=== PATIENT | female | born 1990 | race Caucasian/White ===

== ENCOUNTER 2016-10-15 14:21 | Emergency (ER) | payer OTHER | END 2016-10-15 15:07 | disposition home or self-care (01) | DX: G62.9 Polyneuropathy, unspecified (principal); Z98.890 Other specified postprocedural states ==

== ENCOUNTER 2017-07-07 18:38 | Inpatient (IN) | payer OTHER ==
--- NOTE | 2017-07-07 18:52 | ED Physician Documentation ---
PD HPI URI - Stated complaint Stated Complaint: COUGH - History obtained from History obtained from: Patient - History of Present Illness Timing - onset: How many days ago (4) Timing duration: Days (4) Timing details: Gradual onset (she was feeling okay post op and doing okay at home. 4 days ago started with cough and dyspnea. No chest pain. Cough is making back hurt more. Denies edema nor legs pains. Continues to have cough and some wheezing feeling. Not smoker. No fevers per se.), Still present Associated symptoms: Dry cough, Dyspnea. No: Fever, Nasal congestion, Sore throat, Swollen nodes, Hemoptysis, Chest pain, NVD Contributing factors: Sick contact (she was in hospital for few days 10 days ago.). 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 denies: Fever, Chills, Myalgias Nose: reports: Congestion. denies: Rhinorrhea / runny nose, Sinus pressure / pain Throat: denies: Sore throat Cardiac: denies: Chest pain / pressure, Palpitations Respiratory: reports: Dyspnea, Cough, Wheezing GI: denies: Abdominal Pain, Nausea, Vomiting, Diarrhea : denies: Dysuria (but has feeling of having to push to get urine output. Then gets large amount. No hematuria.) Skin: denies: Rash, Lesions Musculoskeletal: reports: Neck pain, Back pain (upper thoracic, post operative) Neurologic: reports: Generalized weakness. 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 ) - Past Surgical History General: Appendectomy - Present Medications Home Medications: Ambulatory Orders Medication Instructions Recorded Confirmed Cyclobenzaprine [Flexeril] 10 mg PO Q6HR PRN 07/07/17 07/07/17 oxyCODONE [Roxicodone] 10 mg PO Q3HR PRN 07/07/17 07/07/17 - Allergies Allergies/Adverse Reactions: Allergies Allergy/AdvReac Type Severity Reaction Status Date / Time No Known Drug Allergies Allergy Verified 07/07/17 18:57 - Social History Does the pt smoke?: No Smoking Status: Never smoker Does the pt drink ETOH?: No Does the pt have substance abuse?: No - Family History Family history: denies: Sudden , Venous thromboembolism - Immunizations Immunizations are current?: Yes PD ED PE NORMAL - Vitals Vital signs reviewed: Yes (tachycardic, sinus tach; sats good. ) - General General: Alert and oriented X 3, No acute distress, Well developed/nourished - HEENT HEENT: Pharynx benign. No: Ears normal (both ears with some inflammation of the outer canal. TMs appear normal. ) - Neck Neck: Supple, no meningeal sign, No adenopathy - Cardiac Cardiac: RRR, No murmur - Respiratory Respiratory: No respiratory distress. No: Clear bilaterally (diffuse wheezing without accessory muscle use. No coarse sounds. ) - Abdomen Abdomen: Soft, Non tender, Non distended - Back Back: No CVA TTP - Derm Derm: Normal color, Warm and dry, Other (neck and thoracic area with sutures in place. Some redness just at sutures sites c/w irritation. Does not have infection appearance. No drainage. ) - Extremities Extremities: No tenderness to palpate, Normal ROM s pain, No edema, No calf tenderness / cord - Neuro Neuro: Alert and oriented X 3, No motor deficit, Normal speech - Psych Psych: Normal mood, Normal affect Results - Vitals Vitals: Vital Signs - 24 hr 07/07/17 07/07/17 07/07/17 18:44 19:12 19:30 Temperature 36.4 C L Heart Rate 144 H 133 H 120 H Respiratory 20 20 18 Rate Blood Pressure 118/83 H O2 Saturation 97 97 07/07/17 07/07/17 07/07/17 19:34 20:08 20:26 Temperature Heart Rate 122 H 115 H 117 H Respiratory 18 16 17 Rate Blood Pressure 122/74 107/53 L O2 Saturation 100 95 96 07/07/17 07/07/17 07/07/17 21:00 21:33 22:52 Temperature 36.5 C Heart Rate 121 H 130 H 133 H Respiratory 18 17 17 Rate Blood Pressure 111/69 114/78 O2 Saturation 96 96 07/07/17 23:45 Temperature Heart Rate 128 H Respiratory 16 Rate Blood Pressure O2 Saturation 94 Oxygen O2 Source Room air - EKG (time done) 18:59 Rate: Rate (enter#) (136) Rhythm: Sinus tachycardia Grahn: Normal Intervals: Normal VT QRS: Normal Ischemia: Normal ST segments. No: ST elevation c/w ischemia, ST depression - Labs Labs: Laboratory Tests 07/07/17 07/07/17 07/07/17 19:39 19:39 19:39 WBC 9.9 RBC 3.49 L Hgb 10.6 L Hct 32.3 L MCV 92.5 MCH 30.3 MCHC 32.7 RDW 16.2 H Plt Count 305 MPV 6.9 L Neut # 7.5 H Lymph # 1.3 L [place] # 0.9 Eos # 0.2 Baso # 0.0 Absolute Nucleated RBC 0.00 Nucleated RBC % 0.0 D-Dimer 588.3 H Sodium 132 L Potassium 3.9 Chloride 102 Carbon Dioxide 24 Anion Gap 6.0 BUN 6 Creatinine 0.7 Estimated GFR (MDRD) 103 Glucose 116 H Calcium 8.8 Total Bilirubin < 0.2 L AST 24 ALT 47 Alkaline Phosphatase 73 Total Protein 7.0 Albumin 3.3 Globulin 3.7 Albumin/Globulin Ratio 0.9 L Lipase 24 Urine Color Urine Clarity Urine pH Ur Specific Morris Urine Protein Urine Glucose (UA) Urine Ketones Urine Occult Blood Urine Nitrite Urine Bilirubin Urine Urobilinogen Ur Leukocyte Esterase Ur Microscopic Review Urine Culture Comments 07/07/17 21:15 WBC RBC Hgb Hct MCV MCH MCHC RDW Plt Count MPV Neut # Lymph # [place]well # Eos # Baso # Absolute Nucleated RBC Nucleated RBC % D-Dimer Sodium Potassium Chloride Carbon Dioxide Anion Gap BUN Creatinine Estimated GFR (MDRD) Glucose Calcium Total Bilirubin AST ALT Alkaline Phosphatase Total Protein Albumin Globulin Albumin/Globulin Ratio Lipase Urine Color YELLOW Urine Clarity CLEAR Urine pH 6.0 Ur Specific Morris <=1.005 Urine Protein NEGATIVE Urine Glucose (UA) NEGATIVE Urine Ketones NEGATIVE Urine Occult Blood NEGATIVE Urine Nitrite NEGATIVE Urine Bilirubin NEGATIVE Urine Urobilinogen 0.2 (NORMAL) Ur Leukocyte Esterase NEGATIVE Ur Microscopic Review NOT INDICATED Urine Culture Comments NOT INDICATED - Rads (name of study) chest Radiology: Prelim report reviewed, EMP read contemporaneously (post op spine changes. No lung parenchymal abnormalities. ) chest angio Radiology: Prelim report reviewed, Discussed with rads (small to moderate amount of clot segmental arteries both lungs. ) PD MEDICAL DECISION MAKING - ED course Complexity details: reviewed results (post void bladder residual shows 280 ml. CXR is okay. [address] chest showing PEs. ), re-evaluated patient (some improvement with nebulizer but still tachycardic. Sats okay now at 97%. Breathing easily. Still concern for occult pneumonia or PE due to abnormal vitals. Will get chest angio after discussion with patient. ), considered differential (concern for pneumonia, atelectasis, PTX, effusions, PE - will test for these. For bladder, concern for UTI or retention. ), d/w patient Departure - Departure Clinical Impression: Urinary retention with incomplete bladder emptying, History of recent intraspinal surgery, Tachycardia, Cough Pulmonary emboli Qualifiers: Pulmonary embolism type: other Chronicity: acute Acute cor pulmonale presence: without acute cor pulmonale Qualified Code(s): I26.99 - Other pulmonary embolism without acute cor pulmonale Condition: Stable Record reviewed to determine appropriate education?: Yes
[2017-07-07] MEDS ORDERED: SODIUM CHLORIDE 0.9% 1,000 ML IV ONE (19:22)
[2017-07-07] MEDS ORDERED: KETOROLAC 60 MG/2 ML VIAL IVP STA (19:22)
[2017-07-07] MEDS ORDERED: ALBUTEROL NEB 2.5 MG/3 ML INH STA ×2 (19:22→20:47)
[2017-07-07] MEDS ORDERED: ALBUTEROL NEB 2.5 MG/3 ML INH ONE ×2 (19:30→21:11)
[2017-07-07] MEDS ORDERED: KETOROLAC 30 MG/ML VIAL ONE (19:30)
[2017-07-07 19:46] LABS: BASOPHILS % (AUTO) 0.2 %; EOSINOPHILS # (AUTO) 0.2 10^3/uL (0.0-0.7); EOSINOPHILS % (AUTO) 1.9 %; HCT - HEMATOCRIT 32.3 % (37.0-47.0); HGB - HEMOGLOBIN 10.6 g/dL (12.0-16.0); LYMPHOCYTES # (AUTO) 1.3 10^3/uL (1.5-3.5); LYMPHOCYTES % (AUTO) 13.4 %; MEAN CORPUSCULAR HEMOGLOBIN 30.3 pg (27.0-31.0); MEAN CORPUSCULAR HGB CONC 32.7 g/dL (32.0-36.0); MEAN CORPUSCULAR VOLUME 92.5 fL (81.0-99.0); MEAN PLATELET VOLUME 6.9 fL (7.9-10.8); MONOCYTES # (AUTO) 0.9 10^3/uL (0.0-1.0); MONOCYTES % (AUTO) 8.6 %; NEUTROPHILS # (AUTO) 7.5 10^3/uL (1.5-6.6); NEUTROPHILS % (AUTO) 75.9 %; RED BLOOD COUNT 3.49 10^6/uL (4.20-5.40); RED CELL DISTRIBUTION WIDTH 16.2 % (12.0-15.0); UNCORRECTED WHITE BLOOD COUNT 9.9 x10^3/uL; WHITE BLOOD COUNT 9.9 x10^3/uL (4.8-10.8)
[2017-07-07 19:57] LABS: ALBUMIN/GLOBULIN RATIO 0.9 (1.0-2.2); BILIRUBIN,TOTAL < 0.2 mg/dL (0.2-1.0); BUN - BLOOD UREA NITROGEN 6 mg/dL (6-20); CALCIUM 8.8 mg/dL (8.5-10.3); CARBON DIOXIDE - CO2 24 mmol/L (21-32); CHLORIDE 102 mmol/L (101-111); CREATININE 0.7 mg/dL (0.4-1.0); GFR - MDRD 103 (>89); GLUCOSE 116 mg/dL (70-100); LIPASE 24 U/L (22-51); POTASSIUM 3.9 mmol/L (3.5-5.0); SODIUM 132 mmol/L (135-145)
[2017-07-07] MEDS ORDERED: HYDROmorphone 1 MG/ML SYRINGE IVP STA ×2 (20:05→22:57)
--- NOTE | 2017-07-07 20:11 | XRAY Preliminary Report ---
Exam: XR CHEST 2 VIEW PA/LAT IMPRESSION: Normal heart size and clear lungs. [facility] SITE ID: [id number]
[2017-07-07] MEDS ORDERED: HYDROmorphone 1 MG/ML SYRINGE ONE ×2 (20:12→23:03)
--- NOTE | 2017-07-07 20:14 | XRAY Report ---
EXAM: CHEST RADIOGRAPHY EXAM DATE: 07/07/2017 08:00 PM. CLINICAL HISTORY: Recent neck surgery. Cough and wheezing. COMPARISON: None. TECHNIQUE: 2 views. FINDINGS: Lungs/Pleura: No focal opacities evident. No pleural effusion. No pneumothorax. Normal volumes. Mediastinum: Heart and mediastinal contours are unremarkable. Other: Cervicothoracic fusion in place. IMPRESSION: Normal heart size and clear lungs. [facility] Referring Provider Line: [phone] SITE ID: [id number]
[2017-07-07] MEDS ORDERED: BENZONATATE 100 MG CAPSULE PO STA (21:21)
[2017-07-07 21:22] LABS: BILIRUBIN,URINE NEGATIVE (NEGATIVE)
[2017-07-07] MEDS ORDERED: DEXAMETHASONE 10 MG/ML VIAL IVP STA (21:22)
[2017-07-07] MEDS ORDERED: DOXYCYCLINE 100 MG TABLET PO STA (21:22)
[2017-07-07 21:25] LABS: UA CHARGE (STRIP ONLY) YES; UR CULTURE IF IND NOT INDICATED
[2017-07-07] MEDS ORDERED: DOXYCYCLINE 100 MG TABLET PO ONE (21:32)
[2017-07-07] MEDS ORDERED: DEXAMETHASONE 10 MG/ML VIAL ONE (21:32)
[2017-07-07] MEDS ORDERED: BENZONATATE 100 MG CAPSULE PO ONE (21:32)
[2017-07-07] MEDS ORDERED: IOPAMIDOL-300 100 ML VIAL ONE (21:34)
[2017-07-07] MEDS ORDERED: IOPAMIDOL-300 100 ML VIAL IVP ONE (22:00)
--- NOTE | 2017-07-07 22:35 | CT Preliminary Report ---
Exam: CT CHEST ANGIO (PE) IMPRESSION: Positive for pulmonary embolism with a [id number] amount of clot. [facility] The above critical findings were discussed with Dr. Chowdhury by Dr. Julio Cesar Quesada at 22:34 hrs on . SITE ID: [id number]
--- NOTE | 2017-07-07 22:38 | CT Report ---
EXAM: CT ANGIOGRAM CHEST EXAM DATE: 07/07/2017 10:05 PM. CLINICAL HISTORY: Post op with cough and dyspnea; tachycardia. COMPARISON: None. TECHNIQUE: Routine helical imaging was performed through the chest in the pulmonary arterial phase. I V Contrast: 80 cc Isovue 300. Reconstructions: Sagittal, coronal, and 3-D MIP. In accordance with CT protocol optimization, one or more of the following dose reduction techniques w ere utilized for this exam: automated exposure control, adjustment of mA and/or KV based on patient s ize, or use of iterative reconstructive technique. FINDINGS: Pulmonary Arteries: Diagnostic quality: Adequate through the segmental arteries. Multiple pulmonary emboli at the segment al and subsegmental levels, right more than left, with a small amount of thrombus visible at the righ t left pulmonary artery bifurcations. No large or central lesions. RV/LV is within normal limits. There is no interventricular septal bowing. There is no reflux of cont rast material in the IVC. Lungs/Pleura: No consolidation, nodules, or edema. No effusions or pneumothorax. Mediastinum: Normal heart size. No pericardial effusion. No lymphadenopathy. Thoracic Aorta: Unremarkable. Upper Abdomen: Unremarkable. Other: Extensive postoperative changes in the spine. IMPRESSION: Positive for pulmonary embolism with a [id number] amount of clot. [facility] The above critical findings were discussed with Dr. Chowdhury by Dr. Julio Cesar Quesada at 22:34 hrs on . Referring Provider Line: [phone] SITE ID: [id number]
[2017-07-08] MEDS ORDERED: PROMETHAZINE 25 MG/1 ML VIAL IM PRN (00:28)
[2017-07-08] MEDS ORDERED: ONDANSETRON 4 MG/2 ML VIAL IVP PRN (00:28)
[2017-07-08] MEDS ORDERED: PROCHLORPERAZINE 10 MG/2 ML VIAL IVP PRN (00:28)
[2017-07-08] MEDS ORDERED: ZOLPIDEM 5 MG TABLET PO PRN (00:28)
[2017-07-08] MEDS ORDERED: IPRATROPIUM/ALBUTEROL 3 ML NEB INH PRN (00:28)
[2017-07-08] MEDS ORDERED: oxyCODONE 5 MG TABLET PO PRN (00:28)
[2017-07-08] MEDS ORDERED: HEPARIN 25,000 UNITS/500 ML NS 25,000 UNIT/500 ML BAG IV SCH (01:00)
--- NOTE | 2017-07-08 02:06 | HISTORY & PHYSICAL EXAMINATION ---
Chief Complaint - Chief Complaint Chief Complaint: Shortness of air History of Present Illness - Admitted From Admitted From:: Emergency department - History Obtained From Records Reviewed: Yes History obtained from: Patient Exam Limitations: None - History of Present Illness HPI Comment/Other: Patient is a very unfortunate 26-year-old female with a past medical history significant for giant cell sarcoma diagnosed in 2014. Patient was initially diagnosed when she presented with persistent back pain and found to have sarcoma in the T-spine. The patient's tumor was removed and she had a fusion from C8-T2. The patient had recurrence of tumor within a year and again underwent surgery for removal of the tumor and then had 8 weeks of radiation therapy. The patient then again had recurrence of tumor this time she stated that it was pressing up against her lungs and she underwent a VATS procedure to have the tumor removed. Most recently the patient was having increasing back pain and worsening kyphosis. Patient had surgery for revision of her previous hardware with C2-T8 fusion on June 27, 2017. Patient had a 9-1/2 hour procedure and was hospitalized for 5 days postprocedure. She states that she was feeling very well after returning home. She did have some residual pain from the surgery but otherwise had no symptoms. She states that about 4 days ago she began to develop a cough. She did not think much of the cough but she states that with the coughing she did have increased pain in the area of the surgery. She states that she became concerned the last few days when she began developing worsening shortness of breath. She states that her shortness of breath progressed over the last 2 days to the point where she was having a hard time catching her breath just at rest. The patient also states that she was having tightness in her chest. The patient denies having had any fevers, chills or any sputum production. The patient denies any wheezing or any previous history of asthma. The patient denies any leg swelling, orthopnea or PND. The patient denies any nausea or vomiting. The patient denies any abdominal pain. The patient denies any diarrhea or constipation. The patient denies any headaches, blurred vision, runny nose, sore throat, nasal congestion, urinary urgency, dysuria, joint pain , joint swelling, muscle aches, changes in appetite, recent unintentional weight loss or any focal neurologic deficits. On presentation to the emergency department the patient was afebrile but very tachycardic with a heart rate of 144. The patient was in sinus tachycardia and was mildly tachypneic but was not hypoxic or in any respiratory distress. The patient was having some coughing. The patient did have some diffuse wheezing on examination but denied any history of asthma. The patient was given several breathing treatments with albuterol in the emergency department. The patient was also given Dilaudid as she was having back pain with her coughing. The patient was given Tessalon Perles for her cough and Decadron for the wheezing. The patient underwent a chest x-ray which revealed clear lungs. The patient's lab work showed no leukocytosis but did have an elevated d-dimer of 588. The patient underwent a CT angiogram of her lungs which revealed multiple pulmonary emboli at the segmental and subsegmental levels, right more than left, with a small amount of thrombus visible at the right to left pulmonary artery bifurcation. Given these findings the patient's neurosurgeon at the [facility] was contacted. We were unable to contact the surgeon that performed the patient's surgery but we were able to get in contact with Dr. Sarah who recommended that the patient be admitted for treatment with a heparin drip. He recommended that no bolus be given and that the goal PTT be between 60 and 80 and the patient be bridged to Coumadin. He said that the risk of bleeding was not as high as if the patient had undergone brain surgery but was still increased with a spinal procedure and therefore he recommended hospitalization until the patient was appropriately bridged to Coumadin. He did not feel that it was necessary to transfer the patient to the [facility] and asked that the patient be admitted here at [facility]. 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 Social History Notes: The patient is originally from [place] she moved to [facility] just over a year ago. She is and has a 4-year-old son. Her is in the [employer] and was stationed on [facility]. The patient does not smoke cigarettes, she does not drink alcohol and she does not use any illicit drugs. - Substance History Use: Uses substance without health or social issues: NONE Abuse: Recurrent use of substance despite neg consequences: NONE Dependence: Experiences withdrawal or developed tolerances: NONE - POLST Patient has POLST: No POLST Status: Full Code Meds/Allgy - Home Medications Home Medications: Ambulatory Orders Medication Instructions Recorded Confirmed Cyclobenzaprine [Flexeril] 10 mg PO Q6HR PRN 07/07/17 07/07/17 oxyCODONE [Roxicodone] 10 mg PO Q3HR PRN 07/07/17 07/07/17 - Allergies Allergies/Adverse Reactions: Allergies Allergy/AdvReac Type Severity Reaction Status Date / Time No Known Drug Allergies Allergy Verified 07/07/17 18:57 Review of Systems - Other Findings Other Findings: A comprehensive review of systems was performed the pertinent positives and negatives are stated above in the HPI and the remainder of the review of systems is negative. Exam - Vital Signs Reviewed Vital Signs: Yes Vital Signs: Vital Signs x48h Temp Pulse Pulse Resp BP BP Pulse Ox 07/08/17 01:16 36.9 C 117 H 18 126/77 98 07/08/17 00:41 37.3 C 124 H 16 108/74 93 - Physical Exam General Appearance: positive: No acute distress, Alert Eyes Bilateral: positive: Normal inspection, PERRL, EOMI, No lid inflammation, Conjunctivae nml, No scleral icterus ENT: positive: ENT inspection nml, Pharynx nml, No signs of dehydration. negative: Purulent nasal drainage, Pharyngeal erythema, Oral lesions Neck: positive: Nml inspection, Thyroid nml, No JVD, Trachea midline. negative : Thyromegaly, Lymphadenopathy (R), Lymphadenopathy (L), Stiff neck, Carotid bruit, Tracheal deviation Respiratory: positive: Chest non-tender, Wheezes (Diffuse right worse than left) , Rales (Bases) Cardiovascular: positive: No murmur, No gallop, Tachycardia Abdomen: positive: Non-tender, No organomegaly, Nml bowel sounds, No distention. negative: Guarding, Rebound, Hepatomegaly Back: positive: Nml inspection. negative: CVA tenderness (R), CVA tenderness (L ) Skin: positive: Color nml, No rash, Warm. negative: Cyanosis, Pallor Extremities: positive: Non-tender, Full ROM, Nml appearance, No pedal edema Neurologic/Psychiatric: positive: Oriented x3, CN's nml (2-12), Motor nml, Sensation nml, Mood/affect nml Conclusion/Plan - Problem List (1) Pulmonary emboli Conclusion/Plan: Patient presented to the emergency department with chief complaint of progressive shortness of air, cough and chest tightness. The patient recently had spinal surgery on June 27 and developed symptoms less than a week after the surgical procedure. The patient presented with sinus tachycardia and shortness of air. The patient's EKG did not show any ST elevations or ischemic changes, chest x-ray was negative, d-dimer was elevated and patient's CT angiogram showed bilateral segmental and subsegmental pulmonary emboli. Given the patient's recent spinal neurosurgery from [facility] was contacted and they recommended treating the patient with a heparin drip with no bolus of heparin and with a PTT goal of 60-80. They recommended that the patient be bridged to Coumadin with heparin drip during this hospitalization. They said there was no need to perform serial CT scans but felt patient needed hospitalization for the bridging to be monitored closely. This appears to be a provoked PE due to recent surgery and patient is also at high risk secondary to sarcoma Plan: Patient will be started on a heparin drip with goal PTT of 60-80 and no boluses of heparin We will monitor the patient's hemoglobin closely Patient will be started on Coumadin and will be bridged with heparin once patient's INR is greater than 2 for 2 consecutive days the patient will be able to be discharged home on Coumadin Patient will be given supplemental oxygen as needed Patient will be given incentive spirometer Patient will be given Mucinex for cough suppression Qualifiers: Pulmonary embolism type: other Chronicity: acute Acute cor pulmonale presence: without acute cor pulmonale Qualified Code(s): I26.99 - Other pulmonary embolism without acute cor pulmonale (2) Back pain Conclusion/Plan: Patient continues to have pain in her cervical to thoracic spine area. This is the area of her recent surgical procedure. The patient states that the pain is much worse because of her recent coughing. The patient has been taking Alexis, the patient has been taking oxycodone at home and this is not been sufficient in alleviating her pain. Plan: Patient will be placed on oxycodone every 4 hours as needed and morphine every 2 hours as needed for breakthrough pain Patient will also be given a cough suppressant Qualifiers: Back pain location: thoracic back pain Chronicity: acute Back pain laterality: midline Qualified Code(s): M54.6 - Pain in thoracic spine (3) Anemia Conclusion/Plan: On presentation the patient's hemoglobin is 10.6. The patient is not on any iron supplements. It is unclear at this time what the cause of the patient's anemia is. Plan: We will continue to monitor the patient's hemoglobin daily as she is being placed on a heparin drip and Coumadin. We will check iron studies, B12 and folate (4) Giant cell sarcoma Conclusion/Plan: Patient has giant cell sarcoma of the bone. Patient has had multiple spinal surgeries to remove recurrence of tumor and had a VATS procedure. Patient most recently had a procedure to repair hardware from previous procedure that was causing patient increased pain and kyphosis. Plan: Patient does not appear to have active sarcoma at this time she is being monitored for her sarcoma at the [facility] by a sarcoma specialist Patient will continue to follow up as an outpatient Stable - Lab Results Lab results reviewed: Yes Fish Bones: 07/07/17 19:39 07/07/17 19:39 Other Lab Results: Laboratory Results WBC 9.9 x10^3/uL (4.8-10.8) 07/07/17 19:39 RBC 3.49 10^6/uL (4.20-5.40) L 07/07/17 19:39 Hgb 10.6 g/dL (12.0-16.0) L 07/07/17 19:39 Hct 32.3 % (37.0-47.0) L 07/07/17 19:39 MCV 92.5 fL (81.0-99.0) 07/07/17 19:39 MCH 30.3 pg (27.0-31.0) 07/07/17 19:39 MCHC 32.7 g/dL (32.0-36.0) 07/07/17 19:39 RDW 16.2 % (12.0-15.0) H 07/07/17 19:39 Plt Count 305 10^3/uL (130-450) 07/07/17 19:39 MPV 6.9 fL (7.9-10.8) L 07/07/17 19:39 Neut # 7.5 10^3/uL (1.5-6.6) H 07/07/17 19:39 Lymph # 1.3 10^3/uL (1.5-3.5) L 07/07/17 19:39 Jewell # 0.9 10^3/uL (0.0-1.0) 07/07/17 19:39 Eos # 0.2 10^3/uL (0.0-0.7) 07/07/17 19:39 Baso # 0.0 10^3/uL (0.0-0.1) 07/07/17 19:39 Absolute Nucleated RBC 0.00 x10^3/uL 07/07/17 19:39 Nucleated RBC % 0.0 /100WBC 07/07/17 19:39 D-Dimer 588.3 ng/mL (200.0-255.0) H 07/07/17 19:39 Anti-Xa Level 0.1 U/mL (-0.7) 07/08/17 01:32 Sodium 132 mmol/L (135-145) L 07/07/17 19:39 Potassium 3.9 mmol/L (3.5-5.0) 07/07/17 19:39 Chloride 102 mmol/L (101-111) 07/07/17 19:39 Carbon Dioxide 24 mmol/L (21-32) 07/07/17 19:39 Anion Gap 6.0 (6-13) 07/07/17 19:39 BUN 6 mg/dL (6-20) 07/07/17 19:39 Creatinine 0.7 mg/dL (0.4-1.0) 07/07/17 19:39 Estimated GFR (MDRD) 103 (>89) 07/07/17 19:39 Glucose 116 mg/dL (70-100) H 07/07/17 19:39 Calcium 8.8 mg/dL (8.5-10.3) 07/07/17 19:39 Total Bilirubin < 0.2 mg/dL (0.2-1.0) L 07/07/17 19:39 AST 24 IU/L (10-42) 07/07/17 19:39 ALT 47 IU/L (10-60) 07/07/17 19:39 Alkaline Phosphatase 73 IU/L (42-121) 07/07/17 19:39 Total Protein 7.0 g/dL (6.7-8.2) 07/07/17 19:39 Albumin 3.3 g/dL (3.2-5.5) 07/07/17 19:39 Globulin 3.7 g/dL (2.1-4.2) 07/07/17 19:39 Albumin/Globulin Ratio 0.9 (1.0-2.2) L 07/07/17 19:39 Lipase 24 U/L (22-51) 07/07/17 19:39 Urine Color YELLOW 07/07/17 21:15 Urine Clarity CLEAR (CLEAR) 07/07/17 21:15 Urine pH 6.0 PH (5.0-7.5) 07/07/17 21:15 Ur Specific [place] <=1.005 (1.002-1.030) 07/07/17 21:15 Urine Protein NEGATIVE mg/dL (NEGATIVE) 07/07/17 21:15 Urine Glucose (UA) NEGATIVE mg/dL (NEGATIVE) 07/07/17 21:15 Urine Ketones NEGATIVE mg/dL (NEGATIVE) 07/07/17 21:15 Urine Occult Blood NEGATIVE (NEGATIVE) 07/07/17 21:15 Urine Nitrite NEGATIVE (NEGATIVE) 07/07/17 21:15 Urine Bilirubin NEGATIVE (NEGATIVE) 07/07/17 21:15 Urine Urobilinogen 0.2 (NORMAL) E.U./dL (NORMAL) 07/07/17 21:15 Ur Leukocyte Esterase NEGATIVE (NEGATIVE) 07/07/17 21:15 Ur Microscopic Review NOT INDICATED 07/07/17 21:15 Urine Culture Comments NOT INDICATED 07/07/17 21:15 - Diagnostic Imaging Results Diagnostic Imaging Results: positive: Final report reviewed Diagnostic Imaging Results Comments: CT angiogram chest Impression: Multiple pulmonary emboli at the segmental and subsegmental levels, right more than left, with a small amount of thrombus visible at the right left pulmonary artery bifurcation. No large or central lesions. RV/LV is within normal limits. There is no intraventricular septal bowing. There is no reflux of contrast material in the IVC. No consolidations, nodules or edema. No effusions or pneumothorax in the lungs. Chest x-ray Impression: Normal single view chest - EKG Results EKG Interpreted Independently: Yes EKG Findings: Sinus tachycardia with no ST elevations or ischemic changes Issues/Core Measures - Anticipated LOS Anticipated Stay Length: 2 or more midnights - DVT/VTE - Prophylaxis VTE/DVT Prophylaxis med ordered at admit?: Yes
[2017-07-08] MEDS: oxyCODONE 5 MG TABLET PO PRN ×5 (02:14→21:59)
[2017-07-08] MEDS: SODIUM CHLORIDE FLUSH 0.9% 10 ML SYRINGE IVP PRN ×7 (02:15→23:43)
[2017-07-08] MEDS: MORPHINE 2 MG/ML SYRINGE IVP PRN ×6 (02:18→23:42)
[2017-07-08] MEDS: HEPARIN 25,000 UNITS/500 ML NS 25,000 UNIT/500 ML BAG IV SCH (02:23)
[2017-07-08] MEDS: SODIUM CHLORIDE FLUSH 0.9% 10 ML SYRINGE IVP SCH ×3 (05:08→21:59)
[2017-07-08 05:36] LABS: BASOPHILS % (AUTO) 0.1 %; HGB - HEMOGLOBIN 9.7 g/dL (12.0-16.0); LYMPHOCYTES % (AUTO) 3.8 %; MEAN CORPUSCULAR HEMOGLOBIN 30.9 pg (27.0-31.0); MEAN CORPUSCULAR HGB CONC 33.4 g/dL (32.0-36.0); MEAN CORPUSCULAR VOLUME 92.5 fL (81.0-99.0); NEUTROPHILS % (AUTO) 95.1 %; RED BLOOD COUNT 3.13 10^6/uL (4.20-5.40); RED CELL DISTRIBUTION WIDTH 16.2 % (12.0-15.0); UNCORRECTED WHITE BLOOD COUNT 9.6 x10^3/uL; WHITE BLOOD COUNT 9.6 x10^3/uL (4.8-10.8)
[2017-07-08 05:39] LABS: INR 1.1 (0.8-1.2); PT - PROTHROMBIN TIME 12.2 secs (9.9-12.6)
[2017-07-08 05:46] LABS: ALBUMIN/GLOBULIN RATIO 0.9 (1.0-2.2); BILIRUBIN,TOTAL 0.3 mg/dL (0.2-1.0); CALCIUM 8.6 mg/dL (8.5-10.3); CREATININE 0.6 mg/dL (0.4-1.0); POTASSIUM 4.4 mmol/L (3.5-5.0); TOTAL PROTEIN 6.7 g/dL (6.7-8.2)
[2017-07-08 06:31] LABS: BAND NEUTROPHILS % (MANUAL) 6 %; LYMPHOCYTES % (MANUAL) 5 %; NEUTROPHILS % (MANUAL) 89 %; NP AUTO DIFFERENTIAL? YES; NP MAN DIFFERENTIAL? NO; PLATELET ESTIMATE, MANUAL NORMAL (130-450,000) (NORMAL); TOTAL CELLS COUNTED 100
[2017-07-08] MEDS: guaiFENesin 600 MG TABLET PO SCH ×3 (06:37→20:55)
[2017-07-08] MEDS: WARFARIN 5 MG TABLET PO SCH ×2 (09:07→11:35)
[2017-07-08] MEDS: POLYETHYLENE GLYCOL 3350 17 GM PACKET PO SCH (09:09)
[2017-07-08] MEDS: FAMOTIDINE 20 MG TABLET PO SCH (10:06)
[2017-07-08] MEDS: PANTOPRAZOLE 40 MG TABLET PO SCH (10:10)
[2017-07-08] MEDS: CALCIUM CARBONATE CHEW 500 MG TABLET PO PRN (11:54)
[2017-07-08] MEDS: LEVALBUTEROL 1.25 MG/0.5 ML NEB INH PRN ×3 (13:17→21:17)
[2017-07-08] MEDS: SODIUM CHLORIDE INHALATION 3 ML NEB INH PRN ×3 (13:17→21:17)
[2017-07-08] MEDS: CYCLOBENZAPRINE 10 MG TABLET PO PRN (17:35)
[2017-07-09] MEDS: MORPHINE 2 MG/ML SYRINGE IVP PRN ×5 (01:21→23:55)
[2017-07-09] MEDS: oxyCODONE 5 MG TABLET PO PRN ×5 (01:22→21:35)
[2017-07-09] MEDS: SODIUM CHLORIDE FLUSH 0.9% 10 ML SYRINGE IVP PRN (01:25)
[2017-07-09] MEDS: CALCIUM CARBONATE CHEW 500 MG TABLET PO PRN (04:12)
[2017-07-09] MEDS: CYCLOBENZAPRINE 10 MG TABLET PO PRN ×2 (04:12→21:35)
[2017-07-09 04:44] LABS: BASOPHILS % (AUTO) 0.3 %; EOSINOPHILS # (AUTO) 0.1 10^3/uL (0.0-0.7); EOSINOPHILS % (AUTO) 0.4 %; HCT - HEMATOCRIT 26.8 % (37.0-47.0); LYMPHOCYTES # (AUTO) 1.6 10^3/uL (1.5-3.5); LYMPHOCYTES % (AUTO) 11.9 %; MEAN CORPUSCULAR HEMOGLOBIN 30.4 pg (27.0-31.0); MEAN CORPUSCULAR HGB CONC 33.5 g/dL (32.0-36.0); MEAN CORPUSCULAR VOLUME 90.5 fL (81.0-99.0); MEAN PLATELET VOLUME 7.1 fL (7.9-10.8); MONOCYTES # (AUTO) 0.9 10^3/uL (0.0-1.0); MONOCYTES % (AUTO) 6.9 %; NEUTROPHILS % (AUTO) 80.5 %; RED BLOOD COUNT 2.96 10^6/uL (4.20-5.40); RED CELL DISTRIBUTION WIDTH 16.4 % (12.0-15.0); UNCORRECTED WHITE BLOOD COUNT 13.7 x10^3/uL; WHITE BLOOD COUNT 13.7 x10^3/uL (4.8-10.8)
[2017-07-09 04:57] LABS: ALBUMIN/GLOBULIN RATIO 0.8 (1.0-2.2); BILIRUBIN,TOTAL 0.2 mg/dL (0.2-1.0); CALCIUM 8.7 mg/dL (8.5-10.3); CREATININE 0.6 mg/dL (0.4-1.0); POTASSIUM 4.3 mmol/L (3.5-5.0); TOTAL PROTEIN 6.8 g/dL (6.7-8.2)
[2017-07-09] MEDS: SODIUM CHLORIDE FLUSH 0.9% 10 ML SYRINGE IVP SCH ×3 (04:57→20:13)
[2017-07-09 05:08] LABS: PT - PROTHROMBIN TIME 11.4 secs (9.9-12.6)
[2017-07-09 05:23] LABS: IRON 16 ug/dL (28-170); TOTAL IRON BINDING CAPACITY 326 ug/dL (250-450); TRANSFERRIN 233 mg/dL (192-382)
[2017-07-09 05:26] LABS: FOLATE 8.69 ng/mL (5.90 - >24.8)
[2017-07-09] MEDS: PANTOPRAZOLE 40 MG TABLET PO SCH (06:20)
[2017-07-09] MEDS: HEPARIN 25,000 UNITS/500 ML NS 25,000 UNIT/500 ML BAG IV SCH (07:46)
[2017-07-09] MEDS: guaiFENesin 600 MG TABLET PO SCH ×2 (09:07→20:21)
[2017-07-09] MEDS: FAMOTIDINE 20 MG TABLET PO SCH (09:07)
[2017-07-09] MEDS: POLYETHYLENE GLYCOL 3350 17 GM PACKET PO SCH (09:08)
--- NOTE | 2017-07-09 11:30 | PROVIDER PROGRESS NOTE ---
Subjective - Prog Note Date Prog Note Date: 07/09/17 Prog Note Time: 11:28 - Subjective Pt reports feeling: No change Current Medications - Current Medications Current Medications: Active Medications Acetaminophen (Tylenol) 650 mg PO Q4HR PRN PRN Reason: Pain 1 to 4 Albuterol/Ipratropium (Duoneb) 3 ml INH Q4HR PRN PRN Reason: Wheezing Calcium Carbonate/Glycine (Tums) 500 mg PO QID PRN PRN Reason: INDIGESTION Last Admin: 07/09/17 04:12 Dose: 500 mg Cyclobenzaprine HCl (Flexeril) 10 mg PO Q6HR PRN PRN Reason: Spasms Last Admin: 07/09/17 04:12 Dose: 10 mg Famotidine (Pepcid) 20 mg PO DAILY [facility] Last Admin: 07/09/17 09:07 Dose: 20 mg Guaifenesin (Mucinex) 600 mg PO BID [facility] Last Admin: 07/09/17 09:07 Dose: 600 mg Heparin Sodium/Sodium Chloride (Heparin/0.45% Nacl) 25,000 unit in 500 mls @ 14.88 mls/hr IV .[id number] TOI; 12 UNIT/KG/HR PRN Reason: Protocol Last Titration: 07/09/17 11:19 Dose: 0 unit/kg/hr, 0 mls/hr Levalbuterol HCl (Xopenex) 1.25 mg INH Q2H PRN PRN Reason: Wheezing Last Admin: 07/08/17 21:17 Dose: 1.25 mg Morphine Sulfate (Morphine) 2 mg IVP Q2H PRN PRN Reason: Pain 8 to 10 Last Admin: 07/09/17 09:50 Dose: 2 mg Ondansetron HCl (Zofran Inj) 4 mg IVP Q6HR PRN PRN Reason: Nausea / Vomiting Oxycodone HCl (Roxicodone) 5 mg PO Q4HR PRN PRN Reason: Pain 5 to 7 Oxycodone HCl (Roxicodone) 10 mg PO Q4HR PRN PRN Reason: Pain 8 to 10 Last Admin: 07/09/17 09:08 Dose: 10 mg Pantoprazole Sodium (Protonix) 40 mg PO QDAC [facility] Last Admin: 07/09/17 06:20 Dose: 40 mg Polyethylene Glycol (Miralax) 17 gm PO DAILY [facility] Last Admin: 07/09/17 09:08 Dose: 17 gm Prochlorperazine Edisylate (Compazine Inj) 10 mg IVP Q6HR PRN PRN Reason: Nausea / Vomiting Promethazine HCl (Phenergan Inj) 25 mg IM Q6HR PRN PRN Reason: Nausea / Vomiting Sodium Chloride (Normal Saline Flush 0.9%) 10 ml IVP PRN PRN PRN Reason: NEEDED PER PROVIDER ORDERS Last Admin: 07/09/17 01:25 Dose: 10 ml Sodium Chloride (Normal Saline Flush 0.9%) 10 ml IVP Q8HR [facility] Last Admin: 07/09/17 04:57 Dose: 10 ml Sodium Chloride (Normal Saline) 3 ml INH PRN PRN PRN Reason: Levalbuterol treatment Last Admin: 07/08/17 21:17 Dose: 3 ml Warfarin Sodium (Coumadin) 5 mg PO QDWARFARIN [facility] Last Admin: 07/08/17 11:35 Dose: Not Given Zolpidem Tartrate (Ambien) 5 mg PO QPM PRN PRN Reason: Insomnia Cyclobenzaprine [Flexeril] 10 mg PO Q6HR PRN 07/07/17 oxyCODONE [Roxicodone] 10 mg PO Q3HR PRN 07/07/17 Metoclopramide [Reglan] 10 mg PO Q8H PRN 07/08/17 Ondansetron HCl [Zofran] 4 mg PO Q6H PRN 07/08/17 Objective - Vital Signs/Intake & Output Reviewed Vital Signs: Yes Vital Signs: Vital Signs x48h Temp Pulse Resp BP Pulse Ox 07/09/17 07:44 37.1 C 98 16 113/71 95 07/09/17 04:13 36.9 C 119 H 18 118/74 96 Intake & Output: Intake & Output 07/06/17 07/07/17 07/08/17 07/09/17 23:59 23:59 23:59 23:59 Intake Total 1209.08 1024.543 Output Total 1200 800 Balance 9.08 224.543 - Objective General Appearance: positive: No acute distress, Alert, Other (She is laying comfortably in her bed. and mom at the bedside. Well-nourished well- developed young white female in no acute distress) Eyes Bilateral: positive: PERRL, EOMI ENT: positive: Pharynx nml Neck: positive: No JVD. negative: Stiff neck, Carotid bruit Respiratory: positive: Chest non-tender, Other (Lung sounds diffusely diminished on the right side as opposed to the left side). negative: Wheezes, Rales, Rhonchi Cardiovascular: positive: Regular rate & rhythm, Other (No RV lift). negative: Systolic murmur, Gallop/S4, Friction rub Abdomen: positive: Non-tender, No organomegaly, Nml bowel sounds, No distention Skin: positive: Other (Incision over her lower C-spine and upper T-spine. Closed, sutures in place. Minimal pinkness or redness at the suture lines. But there is no induration, no heat, no drainage) Extremities: positive: Non-tender, No pedal edema. negative: Calf tenderness, Pacheco's sign/cords Neurologic/Psychiatric: positive: Oriented x3, CN's nml (2-12), Motor nml - Lab Results Fish Bones: 07/09/17 04:30 07/09/17 04:30 Other Labs: Lab Results x24hrs 07/09/17 07/09/17 07/09/17 Range/Units 11:00 04:30 04:30 WBC (4.8-10.8) x10^3/uL RBC (4.20-5.40) 10^6/uL Hgb (12.0-16.0) g/dL Hct (37.0-47.0) % MCV (81.0-99.0) fL MCH (27.0-31.0) pg MCHC (32.0-36.0) g/dL RDW (12.0-15.0) % Plt Count (130-450) 10^3/uL MPV (7.9-10.8) fL Neut # (1.5-6.6) 10^3/uL Lymph # (1.5-3.5) 10^3/uL [place] # (0.0-1.0) 10^3/uL Eos # (0.0-0.7) 10^3/uL Baso # (0.0-0.1) 10^3/uL Absolute Nucleated RBC x10^3/uL Nucleated RBC % /100WBC PT (9.9-12.6) secs INR (0.8-1.2) Anti-Xa Level 1.6 H* 0.2 ( - 0.7) U/mL Sodium (135-145) mmol/L Potassium (3.5-5.0) mmol/L Chloride (101-111) mmol/L Carbon Dioxide (21-32) mmol/L Anion Gap (6-13) BUN (6-20) mg/dL Creatinine (0.4-1.0) mg/dL Estimated GFR (MDRD) (>89) Glucose (70-100) mg/dL Calcium (8.5-10.3) mg/dL Iron (28-170) ug/dL TIBC (250-450) ug/dL % Saturation (20-50) % Transferrin (192-382) mg/dL Total Bilirubin (0.2-1.0) mg/dL AST (10-42) IU/L ALT (10-60) IU/L Alkaline Phosphatase (42-121) IU/L Total Protein (6.7-8.2) g/dL Albumin (3.2-5.5) g/dL Globulin (2.1-4.2) g/dL Albumin/Globulin Ratio (1.0-2.2) Vitamin B12 352 (180-914) pg/mL Folate 8.69 (5.90 - >24.8) ng/mL 07/09/17 07/09/17 07/09/17 Range/Units 04:30 04:30 04:30 WBC (4.8-10.8) x10^3/uL RBC (4.20-5.40) 10^6/uL Hgb (12.0-16.0) g/dL Hct (37.0-47.0) % MCV (81.0-99.0) fL MCH (27.0-31.0) pg MCHC (32.0-36.0) g/dL RDW (12.0-15.0) % Plt Count (130-450) 10^3/uL MPV (7.9-10.8) fL Neut # (1.5-6.6) 10^3/uL Lymph # (1.5-3.5) 10^3/uL [place] # (0.0-1.0) 10^3/uL Eos # (0.0-0.7) 10^3/uL Baso # (0.0-0.1) 10^3/uL Absolute Nucleated RBC x10^3/uL Nucleated RBC % /100WBC PT 11.4 (9.9-12.6) secs INR 1.0 (0.8-1.2) Anti-Xa Level ( - 0.7) U/mL Sodium 136 (135-145) mmol/L Potassium 4.3 (3.5-5.0) mmol/L Chloride 108 (101-111) mmol/L Carbon Dioxide 22 (21-32) mmol/L Anion Gap 6.0 (6-13) BUN 9 (6-20) mg/dL Creatinine 0.6 (0.4-1.0) mg/dL Estimated GFR (MDRD) 123 (>89) Glucose 112 H (70-100) mg/dL Calcium 8.7 (8.5-10.3) mg/dL Iron 16 L (28-170) ug/dL TIBC 326 (250-450) ug/dL % Saturation 5 L (20-50) % Transferrin 233 (192-382) mg/dL Total Bilirubin 0.2 (0.2-1.0) mg/dL AST 16 (10-42) IU/L ALT 33 (10-60) IU/L Alkaline Phosphatase 65 (42-121) IU/L Total Protein 6.8 (6.7-8.2) g/dL Albumin 3.0 L (3.2-5.5) g/dL Globulin 3.8 (2.1-4.2) g/dL Albumin/Globulin Ratio 0.8 L (1.0-2.2) Vitamin B12 (180-914) pg/mL Folate (5.90 - >24.8) ng/mL 07/09/17 07/08/17 07/08/17 Range/Units 04:30 21:55 16:04 WBC 13.7 H (4.8-10.8) x10^3/uL RBC 2.96 L (4.20-5.40) 10^6/uL Hgb 9.0 L (12.0-16.0) g/dL Hct 26.8 L (37.0-47.0) % MCV 90.5 (81.0-99.0) fL MCH 30.4 (27.0-31.0) pg MCHC 33.5 (32.0-36.0) g/dL RDW 16.4 H (12.0-15.0) % Plt Count 341 (130-450) 10^3/uL MPV 7.1 L (7.9-10.8) fL Neut # 11.0 H (1.5-6.6) 10^3/uL Lymph # 1.6 (1.5-3.5) 10^3/uL [place] # 0.9 (0.0-1.0) 10^3/uL Eos # 0.1 (0.0-0.7) 10^3/uL Baso # 0.0 (0.0-0.1) 10^3/uL Absolute Nucleated RBC 0.00 x10^3/uL Nucleated RBC % 0.0 /100WBC PT (9.9-12.6) secs INR (0.8-1.2) Anti-Xa Level 0.3 0.3 ( - 0.7) U/mL Sodium (135-145) mmol/L Potassium (3.5-5.0) mmol/L Chloride (101-111) mmol/L Carbon Dioxide (21-32) mmol/L Anion Gap (6-13) BUN (6-20) mg/dL Creatinine (0.4-1.0) mg/dL Estimated GFR (MDRD) (>89) Glucose (70-100) mg/dL Calcium (8.5-10.3) mg/dL Iron (28-170) ug/dL TIBC (250-450) ug/dL % Saturation (20-50) % Transferrin (192-382) mg/dL Total Bilirubin (0.2-1.0) mg/dL AST (10-42) IU/L ALT (10-60) IU/L Alkaline Phosphatase (42-121) IU/L Total Protein (6.7-8.2) g/dL Albumin (3.2-5.5) g/dL Globulin (2.1-4.2) g/dL Albumin/Globulin Ratio (1.0-2.2) Vitamin B12 (180-914) pg/mL Folate (5.90 - >24.8) ng/mL Assessment/Plan - Problem List (1) Pulmonary emboli Impression: Patient presented to the emergency department with chief complaint of progressive shortness of air, cough and chest tightness. The patient recently had spinal surgery on June 27 and developed symptoms less than a week after the surgical procedure. The patient presented with sinus tachycardia and shortness of air. The patient's EKG did not show any ST elevations or ischemic changes, chest x-ray was negative, d-dimer was elevated and patient's CT angiogram showed bilateral segmental and subsegmental pulmonary emboli. Given the patient's recent spinal neurosurgery from [facility] was contacted and they recommended treating the patient with a heparin drip with no bolus of heparin and with a PTT goal of 60-80. They recommended that the patient be bridged to Coumadin with heparin drip during this hospitalization. They said there was no need to perform serial CT scans but felt patient needed hospitalization for the bridging to be monitored closely. This appears to be a provoked PE due to recent surgery and patient is also at high risk secondary to sarcoma She has plans for flight travel to [place] in the next few weeks and asks if that is safe. Plan: Started on a heparin drip with goal PTT of 60-80 and no boluses of heparin, Day # 2 We will monitor the patient's hemoglobin closely. No epistaxis or hematuria noted. Patient will be started on Coumadin and will be bridged with heparin once patient's INR is greater than 2 for 2 consecutive days the patient will be able to be discharged home on Coumadin. today's INR 1.6 Patient will be given supplemental oxygen as needed Patient will be given incentive spirometer Patient will be given Mucinex for cough suppression I am not recommending she fly in the next few weeks and run it past neurosurgery or PCP. Qualifiers: Pulmonary embolism type: other Chronicity: acute Acute cor pulmonale presence: without acute cor pulmonale Qualified Code(s): I26.99 - Other pulmonary embolism without acute cor pulmonale (2) Back pain Conclusion/Plan: Patient continues to have pain in her cervical to thoracic spine area. This is the area of her recent surgical procedure. The patient states that the pain is much worse because of her recent coughing. The patient has been taking oxycodone at home and this is not been sufficient in alleviating her pain. Here she is on oxycodone 10 mg po and prn MS IV with adequate pain control Plan: Patient will continue on oxycodone 10 mg every 4 hours as needed and morphine every 2 hours as needed for breakthrough pain Patient will also be given a cough suppressant Qualifiers: Back pain location: thoracic back pain Chronicity: acute Back pain laterality: midline Qualified Code(s): M54.6 - Pain in thoracic spine (3) Anemia Conclusion/Plan: On presentation the patient's hemoglobin is 10.6. and 9 grams today. The patient is not on any iron supplements. After iron studies, B12 levels and folate levels, she has iron deficiency anemia Plan: We will continue to monitor the patient's hemoglobin daily as she is being placed on a heparin drip and Coumadin. On ROS no complaints of blood loss anywhere (4) Giant cell sarcoma Conclusion/Plan: Patient has giant cell sarcoma of the bone. Patient has had multiple spinal surgeries to remove recurrence of tumor and had a VATS procedure. Patient most recently had a procedure to repair hardware from previous procedure that was causing patient increased pain and kyphosis. Plan: Patient does not appear to have active sarcoma at this time she is being monitored for her sarcoma at the [facility] by a sarcoma specialist Patient will continue to follow up as an outpatient. She is due for postop suture removal and postop visit 07/12. Hopefully she'll be out by then Stable Qualifiers: Pulmonary embolism type: other Chronicity: acute Acute cor pulmonale presence: without acute cor pulmonale Qualified Code(s): I26.99 - Other pulmonary embolism without acute cor pulmonale
[2017-07-09] MEDS ORDERED: WARFARIN 5 MG TABLET PO SCH ×2 (11:37→14:00)
[2017-07-09] MEDS: LEVALBUTEROL 1.25 MG/0.5 ML NEB INH PRN (19:47)
[2017-07-09] MEDS: SODIUM CHLORIDE INHALATION 3 ML NEB INH PRN (19:47)
[2017-07-10] MEDS: oxyCODONE 5 MG TABLET PO PRN ×5 (01:17→22:10)
[2017-07-10] MEDS: CYCLOBENZAPRINE 10 MG TABLET PO PRN ×2 (03:26→16:17)
[2017-07-10] MEDS: MORPHINE 2 MG/ML SYRINGE IVP PRN ×2 (04:16→07:18)
[2017-07-10] MEDS: PANTOPRAZOLE 40 MG TABLET PO SCH (06:39)
[2017-07-10] MEDS: SODIUM CHLORIDE FLUSH 0.9% 10 ML SYRINGE IVP SCH ×3 (06:40→20:03)
[2017-07-10 06:59] LABS: BASOPHILS % (AUTO) 0.4 %; EOSINOPHILS # (AUTO) 0.1 10^3/uL (0.0-0.7); EOSINOPHILS % (AUTO) 1.6 %; HCT - HEMATOCRIT 27.5 % (37.0-47.0); LYMPHOCYTES # (AUTO) 2.1 10^3/uL (1.5-3.5); LYMPHOCYTES % (AUTO) 22.2 %; MEAN CORPUSCULAR HEMOGLOBIN 30.1 pg (27.0-31.0); MEAN CORPUSCULAR HGB CONC 32.8 g/dL (32.0-36.0); MEAN CORPUSCULAR VOLUME 91.9 fL (81.0-99.0); MEAN PLATELET VOLUME 6.8 fL (7.9-10.8); MONOCYTES # (AUTO) 0.8 10^3/uL (0.0-1.0); MONOCYTES % (AUTO) 8.2 %; NEUTROPHILS # (AUTO) 6.3 10^3/uL (1.5-6.6); NEUTROPHILS % (AUTO) 67.6 %; RED BLOOD COUNT 2.99 10^6/uL (4.20-5.40); RED CELL DISTRIBUTION WIDTH 15.8 % (12.0-15.0); UNCORRECTED WHITE BLOOD COUNT 9.3 x10^3/uL; WHITE BLOOD COUNT 9.3 x10^3/uL (4.8-10.8)
[2017-07-10 07:05] LABS: INR 1.2 (0.8-1.2); PT - PROTHROMBIN TIME 13.3 secs (9.9-12.6)
[2017-07-10] MEDS: FAMOTIDINE 20 MG TABLET PO SCH (07:35)
[2017-07-10] MEDS: CALCIUM CARBONATE CHEW 500 MG TABLET PO PRN (07:35)
[2017-07-10] MEDS: guaiFENesin 600 MG TABLET PO SCH ×2 (07:35→20:09)
[2017-07-10] MEDS: POLYETHYLENE GLYCOL 3350 17 GM PACKET PO SCH (07:51)
[2017-07-10] MEDS ORDERED: HYDROmorphone 2 MG TABLET PO PRN (09:00)
[2017-07-10] MEDS ORDERED: HYDROmorphone 0.5 MG/0.5 ML SYRINGE IVP PRN (09:01)
--- NOTE | 2017-07-10 09:04 | PROVIDER PROGRESS NOTE ---
Subjective - Prog Note Date Prog Note Date: 07/10/17 Prog Note Time: 09:02 - Subjective Pt reports feeling: No change Subjective: She feels like the suture area in her back is swollen and edematous. She describes it as how her gums and lips feel after she has been to the dentist. She is worried that the sutures to get overgrown. That it will be impossible to take them out because the skin will of grown over the sutures. She is due to get them out on Tuesday. Today is Tuesday She denies chest pain shortness of breath. Appetite is good and she has been eating. She is getting up to go to the bathroom and ambulating on her own. Pain is not as controlled as she would like now. Oxycodone just does not cut it. She said at home it was starting not to work. When I ask if there is any medicine that seemed to work better than any of the ones she is received in the past she mentions that Dilaudid from the emergency room worked better. Current Medications - Current Medications Current Medications: Active Medications Acetaminophen (Tylenol) 650 mg PO Q4HR PRN PRN Reason: Pain 1 to 4 Albuterol/Ipratropium (Duoneb) 3 ml INH Q4HR PRN PRN Reason: Wheezing Calcium Carbonate/Glycine (Tums) 500 mg PO QID PRN PRN Reason: INDIGESTION Last Admin: 07/10/17 07:35 Dose: 500 mg Cyclobenzaprine HCl (Flexeril) 10 mg PO Q6HR PRN PRN Reason: Spasms Last Admin: 07/10/17 03:26 Dose: 10 mg Famotidine (Pepcid) 20 mg PO DAILY [facility] Last Admin: 07/10/17 07:35 Dose: 20 mg Guaifenesin (Mucinex) 600 mg PO BID [facility] Last Admin: 07/10/17 07:35 Dose: 600 mg Hydromorphone HCl (Dilaudid) 2 mg PO Q6HR PRN PRN Reason: Severe Pain Hydromorphone HCl (Dilaudid Inj Syringe) 0.5 mg IVP Q2H PRN PRN Reason: PAIN Heparin Sodium/Sodium Chloride (Heparin/0.45% Nacl) 25,000 unit in 500 mls @ 14.88 mls/hr IV .[id number] [facility]; 12 UNIT/KG/HR PRN Reason: Protocol Last Titration: 07/10/17 07:18 Dose: 17 unit/kg/hr, 21.08 mls/hr Levalbuterol HCl (Xopenex) 1.25 mg INH Q2H PRN PRN Reason: Wheezing Last Admin: 07/09/17 19:47 Dose: 1.25 mg Ondansetron HCl (Zofran Inj) 4 mg IVP Q6HR PRN PRN Reason: Nausea / Vomiting Pantoprazole Sodium (Protonix) 40 mg PO QDAC [facility] Last Admin: 07/10/17 06:39 Dose: 40 mg Polyethylene Glycol (Miralax) 17 gm PO DAILY [facility] Last Admin: 07/10/17 07:51 Dose: 17 gm Prochlorperazine Edisylate (Compazine Inj) 10 mg IVP Q6HR PRN PRN Reason: Nausea / Vomiting Promethazine HCl (Phenergan Inj) 25 mg IM Q6HR PRN PRN Reason: Nausea / Vomiting Sodium Chloride (Normal Saline Flush 0.9%) 10 ml IVP PRN PRN PRN Reason: NEEDED PER PROVIDER ORDERS Last Admin: 07/09/17 01:25 Dose: 10 ml Sodium Chloride (Normal Saline Flush 0.9%) 10 ml IVP Q8HR [facility] Last Admin: 07/10/17 06:40 Dose: Not Given Sodium Chloride (Normal Saline) 3 ml INH PRN PRN PRN Reason: Levalbuterol treatment Last Admin: 07/09/17 19:47 Dose: 3 ml Warfarin Sodium (Coumadin) 7.5 mg PO QDWARFARIN [facility] Zolpidem Tartrate (Ambien) 5 mg PO QPM PRN PRN Reason: Insomnia Cyclobenzaprine [Flexeril] 10 mg PO Q6HR PRN 07/07/17 oxyCODONE [Roxicodone] 10 mg PO Q3HR PRN 07/07/17 Metoclopramide [Reglan] 10 mg PO Q8H PRN 07/08/17 Ondansetron HCl [Zofran] 4 mg PO Q6H PRN 07/08/17 Objective - Vital Signs/Intake & Output Reviewed Vital Signs: Yes Vital Signs: Vital Signs x48h Temp Pulse Resp BP Pulse Ox 07/10/17 07:36 37.0 C 111 H 18 103/66 100 07/10/17 04:19 36.9 C 97 16 100/59 L 100 Intake & Output: Intake & Output 07/07/17 07/08/17 07/09/17 07/10/17 23:59 23:59 23:59 23:59 Intake Total 1209.08 1789.923 539.19 Output Total 1200 1950 450 Balance 9.08 -160.077 89.19 - Objective General Appearance: positive: Alert, Other (Well-nourished well-developed young white female with her and mom in the room) Eyes Bilateral: positive: PERRL, EOMI ENT: positive: Pharynx nml Neck: positive: No JVD, Stiff neck (She says it is stiff, but on exam she is able to flex and extend. Flexion causes pulling along her spine in all the sutures and it hurts). negative: Carotid bruit Respiratory: positive: Chest non-tender, No respiratory distress, Other (Right lung continues to be much quieter than left lung with air sounds). negative: Wheezes, Rales, Rhonchi Cardiovascular: positive: Regular rate & rhythm, Tachycardia (She was in the 120s yesterday and today she is 110). negative: Gallop/S4, Friction rub Abdomen: positive: Non-tender, No organomegaly, Nml bowel sounds, No distention Skin: positive: Warm, Dry, Other (In looking at the suture line that goes from lower C-spine to mid thoracic spine, the incision is closed, tinge of pinkness at the mid suture line, sutures are not embedded. There is no redness, induration, heat, or drainage) Extremities: positive: Full ROM, Pedal edema Neurologic/Psychiatric: positive: Oriented x3, CN's nml (2-12), Motor nml - Lab Results Fish Bones: 07/10/17 06:46 07/09/17 04:30 Other Labs: Lab Results x24hrs 07/10/17 07/10/17 07/10/17 Range/Units 06:46 06:46 06:46 WBC 9.3 (4.8-10.8) x10^3/uL RBC 2.99 L (4.20-5.40) 10^6/uL Hgb 9.0 L (12.0-16.0) g/dL Hct 27.5 L (37.0-47.0) % MCV 91.9 (81.0-99.0) fL MCH 30.1 (27.0-31.0) pg MCHC 32.8 (32.0-36.0) g/dL RDW 15.8 H (12.0-15.0) % Plt Count 360 (130-450) 10^3/uL MPV 6.8 L (7.9-10.8) fL Neut # 6.3 (1.5-6.6) 10^3/uL Lymph # 2.1 (1.5-3.5) 10^3/uL [place] # 0.8 (0.0-1.0) 10^3/uL Eos # 0.1 (0.0-0.7) 10^3/uL Baso # 0.0 (0.0-0.1) 10^3/uL Absolute Nucleated RBC 0.00 x10^3/uL Nucleated RBC % 0.0 /100WBC PT 13.3 H (9.9-12.6) secs INR 1.2 (0.8-1.2) Anti-Xa Level 0.2 ( - 0.7) U/mL 07/09/17 07/09/17 07/09/17 Range/Units 23:12 17:08 11:00 WBC (4.8-10.8) x10^3/uL RBC (4.20-5.40) 10^6/uL Hgb (12.0-16.0) g/dL Hct (37.0-47.0) % MCV (81.0-99.0) fL MCH (27.0-31.0) pg MCHC (32.0-36.0) g/dL RDW (12.0-15.0) % Plt Count (130-450) 10^3/uL MPV (7.9-10.8) fL Neut # (1.5-6.6) 10^3/uL Lymph # (1.5-3.5) 10^3/uL [place] # (0.0-1.0) 10^3/uL Eos # (0.0-0.7) 10^3/uL Baso # (0.0-0.1) 10^3/uL Absolute Nucleated RBC x10^3/uL Nucleated RBC % /100WBC PT (9.9-12.6) secs INR (0.8-1.2) Anti-Xa Level 0.2 0.3 0.3 ( - 0.7) U/mL Assessment/Plan - Problem List (1) Pulmonary emboli Impression: Patient presented to the emergency department with chief complaint of progressive shortness of air, cough and chest tightness. The patient recently had spinal surgery on June 27 and developed symptoms less than a week after the surgical procedure. The patient presented with sinus tachycardia and shortness of air. The patient's EKG did not show any ST elevations or ischemic changes, chest x-ray was negative, d-dimer was elevated and patient's CT angiogram showed bilateral segmental and subsegmental pulmonary emboli. Given the patient's recent spinal neurosurgery from [facility] was contacted and they recommended treating the patient with a heparin drip with no bolus of heparin and with a PTT goal of 60-80. They recommended that the patient be bridged to Coumadin with heparin drip during this hospitalization. They said there was no need to perform serial CT scans but felt patient needed hospitalization for the bridging to be monitored closely. This appears to be a provoked PE due to recent surgery and patient is also at high risk secondary to sarcoma She has plans for flight travel to [place] in the next few weeks and asks if that is safe. Plan: Started on a heparin drip with goal PTT of 60-80 and no boluses of heparin, Day # 3 We will monitor the patient's hemoglobin closely. No epistaxis or hematuria noted. Patient will be started on Coumadin and will be bridged with heparin once patient's INR is greater than 2 for 2 consecutive days the patient will be able to be discharged home on Coumadin. today's INR 1.2. Down from 1.6 on 07/09. Increase coumadin to 7.5 mg today from 5 mg. Patient will be given supplemental oxygen as needed Patient will be given incentive spirometer Patient will be given Mucinex for cough suppression I am not recommending she fly in the next few weeks and run it past neurosurgery or PCP. Qualifiers: Pulmonary embolism type: other Chronicity: acute Acute cor pulmonale presence: without acute cor pulmonale Qualified Code(s): I26.99 - Other pulmonary embolism without acute cor pulmonale (2) Back pain Conclusion/Plan: Patient continues to have pain in her cervical to thoracic spine area. This is the area of her recent surgical procedure. The patient states that the pain is much worse because of her recent coughing. The patient has been taking oxycodone at home and this is not been sufficient in alleviating her pain. Here she is on oxycodone 10 mg po and prn MS IV with adequate pain control at first. Now she feels it's not working. Plan: Discontinue oxycodone 10 mg every 4 hours as needed and morphine every 2 hours as needed for breakthrough pain Start Dilaudid 2 mg po q4hr prn pain and 0.5 mg IV q2 hr prn pain Continue cough suppressant Qualifiers: Back pain location: thoracic back pain Chronicity: acute Back pain laterality: midline Qualified Code(s): M54.6 - Pain in thoracic spine (3) Anemia Conclusion/Plan: On presentation the patient's hemoglobin is 10.6. and 9 grams today and yesterday. The patient is not on any iron supplements. After iron studies, B12 levels and folate levels, she has iron deficiency anemia Plan: We will continue to monitor the patient's hemoglobin daily as she is being placed on a heparin drip and Coumadin. On ROS no complaints of blood loss anywhere Add iron supplement with ferrous gluconate (4) Giant cell sarcoma Conclusion/Plan: Patient has giant cell sarcoma of the bone. Patient has had multiple spinal surgeries to remove recurrence of tumor and had a VATS procedure. Patient most recently had a procedure to repair hardware from previous procedure that was causing patient increased pain and kyphosis. Plan: Patient does not appear to have active sarcoma at this time she is being monitored for her sarcoma at the [facility] by a sarcoma specialist Patient will continue to follow up as an outpatient. She is due for postop suture removal and postop visit 07/12. Hopefully she'll be out by then Stable Qualifiers: Pulmonary embolism type: other Chronicity: acute Acute cor pulmonale presence: without acute cor pulmonale Qualified Code(s): I26.99 - Other pulmonary embolism without acute cor pulmonale
[2017-07-10] MEDS: FERROUS GLUCONATE 324 MG TABLET PO SCH (09:38)
[2017-07-10] MEDS: ACETAMINOPHEN 325 MG TABLET PO PRN (13:22)
[2017-07-10] MEDS: WARFARIN 5 MG TABLET PO SCH (14:27)
[2017-07-10] MEDS: HEPARIN 25,000 UNITS/500 ML NS 25,000 UNIT/500 ML BAG IV SCH (17:02)
[2017-07-10] MEDS: LEVALBUTEROL 1.25 MG/0.5 ML NEB INH PRN (18:16)
[2017-07-10] MEDS: SODIUM CHLORIDE INHALATION 3 ML NEB INH PRN (18:16)
--- NOTE | 2017-07-10 23:22 | CT Preliminary Report ---
Exam: CT CERVICAL SPINE W/O IMPRESSION: 1. Extensive postoperative changes noted in the cervical spine. Patient has posterior fusion extendin g from C2-T9. Patient is undergone anterior fusion of C7-T2 with a previous T1 corpectomy. No hardwar e complications. Possible nondisplaced medial left T1 rib fracture. 2. Probable postoperative seroma in the midline of the posterior neck extending from the upper thorac ic levels to C3-C4. However, no postoperative hematoma. Comment: Extensive artifact related to the hardware limits evaluation. [facility] SITE ID: [id number]
--- NOTE | 2017-07-10 23:34 | CT Preliminary Report ---
Exam: CT THORACIC SPINE W/O IMPRESSION: 1. Extensive postoperative changes noted in the cervical spine. Patient has posterior fusion extendin g from C2-T9. Patient has undergone anterior fusion of C7-T2 with a previous T1 corpectomy. No hardwa re complications. Possible nondisplaced medial left T1 rib fracture. 2. Probable postoperative seroma in the midline of the posterior neck extending from the upper thorac ic levels to C3-C4. However, no postoperative hematoma. Comment: Extensive artifact related to the hardware limits evaluation. SITE ID: [id number]
--- NOTE | 2017-07-10 23:37 | CT Report ---
EXAM: CT CERVICAL AND THORACIC SPINE WITHOUT CONTRAST DATE: 07/10/2017 08:16 PM. HISTORY: Postop, pain and swelling of incision, on heparin.. COMPARISONS: 07/07/2017. TECHNIQUE: Thin-section axial images were acquired of the cervical and thoracic spine without contras t. Post-processing: Coronal and sagittal reformats. Other: None. In accordance with CT protocol optimization, one or more of the following dose reduction techniques w ere utilized for this exam: automated exposure control, adjustment of mA and/or KV based on patient s ize, or use of iterative reconstructive technique. FINDINGS: Alignment: Normal. No scoliosis or spondylolisthesis. Bones: No acute cervical spine fracture is noted. Step-off is noted in the medial left first rib, lesvia ge 13, 60. Patient has undergone anterior fusion extending from C7-T2 with an apparent T1 corpectomy. Patient has undergone posterior bilateral pedicle screw and brian fixation extending from C2-T9. No pe dicle screws are noted at C6 or C7. No evidence of hardware loosening. Patient has undergone laminect omies at C7, T1 and T2. Interspace Levels/Facets: No significant degenerative disk disease is noted in the cervical spine. Musculature: Normal. No fatty atrophy. Other: No prevertebral soft tissue swelling is noted. No hematoma is noted in the surgical field. How ever, low density fluid is present in the midline of the posterior neck. No gas is noted. This extend s from approximately C3-C4 to approximately T4-T5. Previously noted medial left upper lobe soft tissu e nodule or mass is no longer apparent. Significant streak artifact related to hardware limits evalua tion. No pneumothorax is noted. IMPRESSION: 1. Extensive postoperative changes noted in the cervical spine. Patient has posterior fusion extendin g from C2-T9. Patient has undergone anterior fusion of C7-T2 with a previous T1 corpectomy. No hardwa re complications. Possible nondisplaced medial left T1 rib fracture. 2. Probable postoperative seroma in the midline of the posterior neck extending from the upper thorac ic levels to C3-C4. However, no postoperative hematoma. Comment: Extensive artifact related to the hardware limits evaluation. [facility] Referring Provider Line: [phone] SITE ID: [id number]
[2017-07-11] MEDS: CYCLOBENZAPRINE 10 MG TABLET PO PRN ×4 (01:39→23:45)
[2017-07-11] MEDS: oxyCODONE 5 MG TABLET PO PRN ×7 (02:16→23:45)
[2017-07-11] MEDS: ACETAMINOPHEN 325 MG TABLET PO PRN ×2 (02:19→06:19)
[2017-07-11 05:52] LABS: INR 1.4 (0.8-1.2)
[2017-07-11 05:56] LABS: BASOPHILS % (AUTO) 0.4 %; EOSINOPHILS # (AUTO) 0.2 10^3/uL (0.0-0.7); EOSINOPHILS % (AUTO) 2.2 %; HCT - HEMATOCRIT 28.6 % (37.0-47.0); HGB - HEMOGLOBIN 9.3 g/dL (12.0-16.0); LYMPHOCYTES # (AUTO) 1.8 10^3/uL (1.5-3.5); LYMPHOCYTES % (AUTO) 20.3 %; MEAN CORPUSCULAR HEMOGLOBIN 29.7 pg (27.0-31.0); MEAN CORPUSCULAR HGB CONC 32.5 g/dL (32.0-36.0); MEAN CORPUSCULAR VOLUME 91.5 fL (81.0-99.0); MEAN PLATELET VOLUME 6.8 fL (7.9-10.8); MONOCYTES # (AUTO) 0.8 10^3/uL (0.0-1.0); MONOCYTES % (AUTO) 8.8 %; NEUTROPHILS # (AUTO) 5.9 10^3/uL (1.5-6.6); NEUTROPHILS % (AUTO) 68.3 %; RED BLOOD COUNT 3.13 10^6/uL (4.20-5.40); RED CELL DISTRIBUTION WIDTH 15.6 % (12.0-15.0); UNCORRECTED WHITE BLOOD COUNT 8.6 x10^3/uL; WHITE BLOOD COUNT 8.6 x10^3/uL (4.8-10.8)
[2017-07-11] MEDS: PANTOPRAZOLE 40 MG TABLET PO SCH (06:35)
[2017-07-11] MEDS: SODIUM CHLORIDE FLUSH 0.9% 10 ML SYRINGE IVP SCH ×3 (06:35→20:29)
[2017-07-11] MEDS ORDERED: SODIUM CHLORIDE 0.9% 500 ML IV ONE (07:48)
[2017-07-11] MEDS: FERROUS GLUCONATE 324 MG TABLET PO SCH (08:23)
[2017-07-11] MEDS: POLYETHYLENE GLYCOL 3350 17 GM PACKET PO SCH (08:23)
[2017-07-11] MEDS: guaiFENesin 600 MG TABLET PO SCH ×2 (08:23→20:25)
[2017-07-11] MEDS: CALCIUM CARBONATE CHEW 500 MG TABLET PO PRN ×2 (09:18→17:47)
[2017-07-11] MEDS: ACETAMINOPHEN 500 MG TABLET PO PRN ×2 (10:53→20:25)
--- NOTE | 2017-07-11 12:35 | PROVIDER PROGRESS NOTE ---
Subjective - Prog Note Date Prog Note Date: 07/11/17 Prog Note Time: 12:40 - Subjective Subjective: Today she is calm. Pain continues to be the biggest issue. But she has resigned herself to realizing that this is her new normal with regards to this current surgery. She is going to take her a while to get better. Her statements not mine. She denies chest pain, shortness of breath. No rigors. No abdominal pain. Food leaves a little bit to be desired sometimes but she asked her family to get her take out and they will bring it in for her. 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 Current Medications - Current Medications Current Medications: Active Medications Acetaminophen (Tylenol) 1,000 mg PO Q6H PRN PRN Reason: Pain 1 to 4 Last Admin: 07/11/17 10:53 Dose: 1,000 mg Albuterol/Ipratropium (Duoneb) 3 ml INH Q4HR PRN PRN Reason: Wheezing Calcium Carbonate/Glycine (Tums) 500 mg PO QID PRN PRN Reason: INDIGESTION Last Admin: 07/11/17 09:18 Dose: 500 mg Cyclobenzaprine HCl (Flexeril) 10 mg PO Q6HR PRN PRN Reason: Spasms Last Admin: 07/11/17 10:53 Dose: 10 mg Ferrous Gluconate (Fergon) 324 mg PO DAILYWM [facility] Last Admin: 07/11/17 08:23 Dose: 324 mg Guaifenesin (Mucinex) 600 mg PO BID [facility] Last Admin: 07/11/17 08:23 Dose: 600 mg Heparin Sodium/Sodium Chloride (Heparin/0.45% Nacl) 25,000 unit in 500 mls @ 14.88 mls/hr IV .[id number] [facility]; 12 UNIT/KG/HR PRN Reason: Protocol Last Admin: 07/10/17 17:02 Dose: 19 unit/kg/hr, 23.56 mls/hr Levalbuterol HCl (Xopenex) 1.25 mg INH Q2H PRN PRN Reason: Wheezing Last Admin: 07/10/17 18:16 Dose: 1.25 mg Ondansetron HCl (Zofran Inj) 4 mg IVP Q6HR PRN PRN Reason: Nausea / Vomiting Oxycodone HCl (Roxicodone) 10 mg PO Q3H PRN PRN Reason: PAIN Last Admin: 07/11/17 14:03 Dose: 10 mg Pantoprazole Sodium (Protonix) 40 mg PO QDAC [facility] Last Admin: 07/11/17 06:35 Dose: 40 mg Polyethylene Glycol (Miralax) 17 gm PO DAILY [facility] Last Admin: 07/11/17 08:23 Dose: 17 gm Prochlorperazine Edisylate (Compazine Inj) 10 mg IVP Q6HR PRN PRN Reason: Nausea / Vomiting Promethazine HCl (Phenergan Inj) 25 mg IM Q6HR PRN PRN Reason: Nausea / Vomiting Sodium Chloride (Normal Saline Flush 0.9%) 10 ml IVP PRN PRN PRN Reason: NEEDED PER PROVIDER ORDERS Last Admin: 07/09/17 01:25 Dose: 10 ml Sodium Chloride (Normal Saline Flush 0.9%) 10 ml IVP Q8HR [facility] Last Admin: 07/11/17 12:29 Dose: Not Given Sodium Chloride (Normal Saline) 3 ml INH PRN PRN PRN Reason: Levalbuterol treatment Last Admin: 07/10/17 18:16 Dose: 3 ml Warfarin Sodium (Coumadin) 7.5 mg PO QDWARFARIN [facility] Last Admin: 07/11/17 14:04 Dose: 7.5 mg Zolpidem Tartrate (Ambien) 5 mg PO QPM PRN PRN Reason: Insomnia Cyclobenzaprine [Flexeril] 10 mg PO Q6HR PRN 07/07/17 oxyCODONE [Roxicodone] 10 mg PO Q3HR PRN 07/07/17 Metoclopramide [Reglan] 10 mg PO Q8H PRN 07/08/17 Ondansetron HCl [Zofran] 4 mg PO Q6H PRN 07/08/17 Objective - Vital Signs/Intake & Output Reviewed Vital Signs: Yes Vital Signs: Vital Signs x48h Temp Pulse Resp BP Pulse Ox 07/11/17 11:59 36.9 C 104 H 20 104/69 98 07/11/17 07:46 36.9 C 100 20 80/51 L 98 07/11/17 05:00 36.8 C 102 H 16 92/58 L 95 Intake & Output: Intake & Output 07/08/17 07/09/17 07/10/17 07/11/17 23:59 23:59 23:59 23:59 Intake Total 1209.08 7068.539 8851.188 400 Output Total 1200 1950 750 925 Balance 9.08 -303.492 7497.188 -525 - Objective General Appearance: positive: No acute distress, Alert, Other (young, WN, WD white female with at the bedside. Mom not taking a break.) Eyes Bilateral: positive: PERRL, EOMI ENT: positive: Pharynx nml. negative: Dry mucous membranes Neck: positive: No JVD. negative: Lymphadenopathy (R), Lymphadenopathy (L), Stiff neck, Carotid bruit Respiratory: positive: Chest non-tender. negative: Wheezes, Rales, Rhonchi Cardiovascular: positive: Regular rate & rhythm. negative: Gallop/S4, Friction rub Abdomen: positive: Non-tender, No organomegaly, Nml bowel sounds, No distention Back: positive: Other (the midline vertical incision continues to be closed, sutures in place. no skin breakdown. slightly pinkness of skin that is nml with the incision. no induration. soft tissue swelling on either side of suture line. but no heat, no redness, no drainage.) Skin: positive: Warm, Dry. negative: Skin rash Extremities: positive: Non-tender, No pedal edema. negative: Joint swelling Neurologic/Psychiatric: positive: Oriented x3, CN's nml (2-12), Motor nml, Mood/ affect nml - Lab Results Fish Bones: 07/11/17 05:17 07/09/17 04:30 Other Labs: Lab Results x24hrs 07/11/17 07/11/17 07/11/17 Range/Units 05:17 05:17 05:17 WBC 8.6 (4.8-10.8) x10^3/uL RBC 3.13 L (4.20-5.40) 10^6/uL Hgb 9.3 L (12.0-16.0) g/dL Hct 28.6 L (37.0-47.0) % MCV 91.5 (81.0-99.0) fL MCH 29.7 (27.0-31.0) pg MCHC 32.5 (32.0-36.0) g/dL RDW 15.6 H (12.0-15.0) % Plt Count 400 (130-450) 10^3/uL MPV 6.8 L (7.9-10.8) fL Neut # 5.9 (1.5-6.6) 10^3/uL Lymph # 1.8 (1.5-3.5) 10^3/uL [place] # 0.8 (0.0-1.0) 10^3/uL Eos # 0.2 (0.0-0.7) 10^3/uL Baso # 0.0 (0.0-0.1) 10^3/uL Absolute Nucleated RBC 0.00 x10^3/uL Nucleated RBC % 0.0 /100WBC PT 16.0 H (9.9-12.6) secs INR 1.4 H (0.8-1.2) Anti-Xa Level 0.3 ( - 0.7) U/mL 07/11/17 07/10/17 07/10/17 Range/Units 01:34 19:28 13:30 WBC (4.8-10.8) x10^3/uL RBC (4.20-5.40) 10^6/uL Hgb (12.0-16.0) g/dL Hct (37.0-47.0) % MCV (81.0-99.0) fL MCH (27.0-31.0) pg MCHC (32.0-36.0) g/dL RDW (12.0-15.0) % Plt Count (130-450) 10^3/uL MPV (7.9-10.8) fL Neut # (1.5-6.6) 10^3/uL Lymph # (1.5-3.5) 10^3/uL [place] # (0.0-1.0) 10^3/uL Eos # (0.0-0.7) 10^3/uL Baso # (0.0-0.1) 10^3/uL Absolute Nucleated RBC x10^3/uL Nucleated RBC % /100WBC PT (9.9-12.6) secs INR (0.8-1.2) Anti-Xa Level 0.3 0.3 0.2 ( - 0.7) U/mL Assessment/Plan - Problem List (1) Pulmonary emboli Impression: Patient presented to the emergency department with chief complaint of progressive shortness of air, cough and chest tightness. The patient recently had spinal surgery on June 27 and developed symptoms less than a week after the surgical procedure. The patient presented with sinus tachycardia and shortness of air. The patient's EKG did not show any ST elevations or ischemic changes, chest x-ray was negative, d-dimer was elevated and patient's CT angiogram showed bilateral segmental and subsegmental pulmonary emboli. Given the patient's recent spinal neurosurgery from [facility] was contacted and they recommended treating the patient with a heparin drip with no bolus of heparin and with a PTT goal of 60-80. They recommended that the patient be bridged to Coumadin with heparin drip during this hospitalization. They said there was no need to perform serial CT scans but felt patient needed hospitalization for the bridging to be monitored closely. This appears to be a provoked PE due to recent surgery and patient is also at high risk secondary to sarcoma She has plans for flight travel to [place] in the next few weeks and asks if that is safe. Plan: Started on a heparin drip with goal PTT of 60-80 and no boluses of heparin, Day # 4 We will monitor the patient's hemoglobin closely. No epistaxis or hematuria noted. Patient will be started on Coumadin and will be bridged with heparin once patient's INR is greater than 2 for 2 consecutive days the patient will be able to be discharged home on Coumadin. today's INR 1.4. Down from 1.6 on 07/09. Increased coumadin to 7.5 mg on 07/10 from 5 mg. Patient will be given supplemental oxygen as needed Patient will be given incentive spirometer Patient will be given Mucinex for cough suppression I am not recommending she fly in the next few weeks and run it past neurosurgery or PCP. I will send a RX to the [facility] pharmacy for the machine for PT/INR. Qualifiers: Pulmonary embolism type: other Chronicity: acute Acute cor pulmonale presence: without acute cor pulmonale Qualified Code(s): I26.99 - Other pulmonary embolism without acute cor pulmonale (2) Back pain from surgical site pain Conclusion/Plan: Patient continued to have pain in her cervical to thoracic spine area. This is the area of her recent surgical procedure. The patient states that the pain is much worse because of her recent coughing. The patient has been taking oxycodone at home and this is not been sufficient in alleviating her pain. Here she is on oxycodone 10 mg po and prn MS IV with adequate pain control at first. Now she feels it's not working. she was changed to dilaudid yesterday since she felt that worked in the ER (both oral and IV) but then felt dilaudid did not help and wanted to go back on oxycodone and morphine. Then last night, she was tearful, sobbing, and felt there was something really wrong with her spine. CT of C spine and T spine done 07/10. No changes other than soft tissue swelling from usual post op changes. Plan: Resumed oxycodone 10 mg every 4 hours as needed and morphine every 2 hours as needed for breakthrough pain Patient reassured. Continue cough suppressant Qualifiers: Back pain location: thoracic back pain Chronicity: acute Back pain laterality: midline Qualified Code(s): M54.6 - Pain in thoracic spine (3) Anemia Conclusion/Plan: On presentation the patient's hemoglobin is 10.6. and staying at 9-9.7 grams since then. The patient is not on any iron supplements. After iron studies, B12 levels and folate levels, she has iron deficiency anemia Plan: We will continue to monitor the patient's hemoglobin daily as she is being placed on a heparin drip and Coumadin. On ROS no complaints of blood loss anywhere Added iron supplement with ferrous gluconate 07/10 Continue FOBT to watch for GI bleed as well. (4) Giant cell sarcoma Conclusion/Plan: Patient has giant cell sarcoma of the bone. Patient has had multiple spinal surgeries to remove recurrence of tumor and had a VATS procedure. Patient most recently had a procedure to repair hardware from previous procedure that was causing patient increased pain and kyphosis. Plan: Patient does not appear to have active sarcoma at this time she is being monitored for her sarcoma at the [facility] by a sarcoma specialist Patient will continue to follow up as an outpatient. She is due for postop suture removal and postop visit 07/12.She is not able to make it. I will call Neurosurgery fellow to see if they want us to remove sutures. Qualifiers: Pulmonary embolism type: other Chronicity: acute Acute cor pulmonale presence: without acute cor pulmonale Qualified Code(s): I26.99 - Other pulmonary embolism without acute cor pulmonale
[2017-07-11] MEDS: WARFARIN 5 MG TABLET PO SCH (14:04)
[2017-07-11] MEDS: PRENATAL VITAMIN TABLET PO SCH (16:49)
[2017-07-11] MEDS: HEPARIN 25,000 UNITS/500 ML NS 25,000 UNIT/500 ML BAG IV SCH (18:19)
[2017-07-12] MEDS: oxyCODONE 5 MG TABLET PO PRN ×8 (02:41→23:50)
[2017-07-12] MEDS: ACETAMINOPHEN 500 MG TABLET PO PRN ×4 (02:46→20:44)
[2017-07-12] MEDS: CYCLOBENZAPRINE 10 MG TABLET PO PRN ×3 (05:16→23:50)
[2017-07-12] MEDS: SODIUM CHLORIDE FLUSH 0.9% 10 ML SYRINGE IVP SCH ×3 (06:01→20:48)
[2017-07-12] MEDS: PANTOPRAZOLE 40 MG TABLET PO SCH (06:04)
[2017-07-12 06:12] LABS: BASOPHILS % (AUTO) 0.6 %; EOSINOPHILS # (AUTO) 0.2 10^3/uL (0.0-0.7); EOSINOPHILS % (AUTO) 3.2 %; HCT - HEMATOCRIT 28.2 % (37.0-47.0); HGB - HEMOGLOBIN 9.3 g/dL (12.0-16.0); LYMPHOCYTES # (AUTO) 1.5 10^3/uL (1.5-3.5); LYMPHOCYTES % (AUTO) 19.7 %; MEAN CORPUSCULAR HGB CONC 32.8 g/dL (32.0-36.0); MEAN CORPUSCULAR VOLUME 91.5 fL (81.0-99.0); MEAN PLATELET VOLUME 6.6 fL (7.9-10.8); MONOCYTES # (AUTO) 0.6 10^3/uL (0.0-1.0); MONOCYTES % (AUTO) 7.8 %; NEUTROPHILS # (AUTO) 5.1 10^3/uL (1.5-6.6); NEUTROPHILS % (AUTO) 68.7 %; RED BLOOD COUNT 3.09 10^6/uL (4.20-5.40); RED CELL DISTRIBUTION WIDTH 15.8 % (12.0-15.0); UNCORRECTED WHITE BLOOD COUNT 7.5 x10^3/uL; WHITE BLOOD COUNT 7.5 x10^3/uL (4.8-10.8)
[2017-07-12 06:20] LABS: INR 1.9 (0.8-1.2); PT - PROTHROMBIN TIME 21.2 secs (9.9-12.6)
[2017-07-12] MEDS: PRENATAL VITAMIN TABLET PO SCH (08:25)
[2017-07-12] MEDS: POLYETHYLENE GLYCOL 3350 17 GM PACKET PO SCH (08:25)
[2017-07-12] MEDS: FERROUS GLUCONATE 324 MG TABLET PO SCH (08:25)
[2017-07-12] MEDS: guaiFENesin 600 MG TABLET PO SCH ×2 (08:25→20:48)
--- NOTE | 2017-07-12 11:56 | PROVIDER PROGRESS NOTE ---
Subjective - Prog Note Date Prog Note Date: 07/12/17 Prog Note Time: 11:54 - Subjective Pt reports feeling: No change Subjective: She is tearful again. [facility] and left as with instructions that she needed to be on an INR greater than 2 for 2 days before we could release her. That would put her being released on morning. She finds it unacceptable and wants to be released tomorrow morning. Current Medications - Current Medications Current Medications: Active Medications Acetaminophen (Tylenol) 1,000 mg PO Q6H PRN PRN Reason: Pain 1 to 4 Last Admin: 07/12/17 08:24 Dose: 1,000 mg Albuterol/Ipratropium (Duoneb) 3 ml INH Q4HR PRN PRN Reason: Wheezing Calcium Carbonate/Glycine (Tums) 500 mg PO QID PRN PRN Reason: INDIGESTION Last Admin: 07/11/17 17:47 Dose: 500 mg Cyclobenzaprine HCl (Flexeril) 10 mg PO Q6HR PRN PRN Reason: Spasms Last Admin: 07/12/17 05:16 Dose: 10 mg Ferrous Gluconate (Fergon) 324 mg PO DAILYWM [facility] Last Admin: 07/12/17 08:25 Dose: 324 mg Guaifenesin (Mucinex) 600 mg PO BID [facility] Last Admin: 07/12/17 08:25 Dose: 600 mg Heparin Sodium/Sodium Chloride (Heparin/0.45% Nacl) 25,000 unit in 500 mls @ 14.88 mls/hr IV .[id number] [facility]; 12 UNIT/KG/HR PRN Reason: Protocol Last Admin: 07/11/17 18:19 Dose: 19 unit/kg/hr, 23.56 mls/hr Levalbuterol HCl (Xopenex) 1.25 mg INH Q2H PRN PRN Reason: Wheezing Last Admin: 07/10/17 18:16 Dose: 1.25 mg Ondansetron HCl (Zofran Inj) 4 mg IVP Q6HR PRN PRN Reason: Nausea / Vomiting Oxycodone HCl (Roxicodone) 10 mg PO Q3H PRN PRN Reason: PAIN Last Admin: 07/12/17 11:39 Dose: 10 mg Pantoprazole Sodium (Protonix) 40 mg PO QDAC [facility] Last Admin: 07/12/17 06:04 Dose: 40 mg Polyethylene Glycol (Miralax) 17 gm PO DAILY [facility] Last Admin: 07/12/17 08:25 Dose: 17 gm Multivit/Folic Acid/Iron (Trinatal Rx 1) 1 tab PO DAILYWM [facility] Last Admin: 07/12/17 08:25 Dose: 1 tab Prochlorperazine Edisylate (Compazine Inj) 10 mg IVP Q6HR PRN PRN Reason: Nausea / Vomiting Promethazine HCl (Phenergan Inj) 25 mg IM Q6HR PRN PRN Reason: Nausea / Vomiting Sodium Chloride (Normal Saline Flush 0.9%) 10 ml IVP PRN PRN PRN Reason: NEEDED PER PROVIDER ORDERS Last Admin: 07/09/17 01:25 Dose: 10 ml Sodium Chloride (Normal Saline Flush 0.9%) 10 ml IVP Q8HR [facility] Last Admin: 07/12/17 06:01 Dose: Not Given Sodium Chloride (Normal Saline) 3 ml INH PRN PRN PRN Reason: Levalbuterol treatment Last Admin: 07/10/17 18:16 Dose: 3 ml Warfarin Sodium (Coumadin) 7.5 mg PO QDWARFARIN [facility] Last Admin: 07/11/17 14:04 Dose: 7.5 mg Zolpidem Tartrate (Ambien) 5 mg PO QPM PRN PRN Reason: Insomnia Cyclobenzaprine [Flexeril] 10 mg PO Q6HR PRN 07/07/17 oxyCODONE [Roxicodone] 10 mg PO Q3HR PRN 07/07/17 Metoclopramide [Reglan] 10 mg PO Q8H PRN 07/08/17 Ondansetron HCl [Zofran] 4 mg PO Q6H PRN 07/08/17 Objective - Vital Signs/Intake & Output Reviewed Vital Signs: Yes Vital Signs: Vital Signs x48h Temp Pulse Pulse Resp BP Pulse Ox 07/12/17 11:32 36.5 C 113 H 18 97/74 100 07/12/17 09:28 122 H 16 07/12/17 08:05 36.7 C 107 H 18 92/62 97 07/12/17 05:05 37.0 C 101 H 16 97/52 L 98 Intake & Output: Intake & Output 07/09/17 07/10/17 07/11/17 07/12/17 23:59 23:59 23:59 23:59 Intake Total 9303.531 5515.188 2019 860 Output Total 1950 750 925 Balance -316.362 1897.188 1095 860 - Objective General Appearance: positive: No acute distress, Alert Eyes Bilateral: positive: PERRL ENT: positive: Pharynx nml Neck: positive: No JVD. negative: Stiff neck, Carotid bruit Respiratory: positive: Chest non-tender. negative: Wheezes, Rales, Rhonchi Cardiovascular: positive: Regular rate & rhythm. negative: Systolic murmur, Gallop/S4, Friction rub Abdomen: positive: Non-tender, No organomegaly, Nml bowel sounds, No distention Back: positive: Other (Midline back incision over the C-spine and T-spine. It is continuing to be closed, no drainage. Sutures in place. No redness no heat. Soft tissue swelling in the paraspinal soft tissues on either side of the midline slightly less than yesterday.) Skin: positive: Warm, Dry Extremities: positive: Full ROM, No pedal edema Neurologic/Psychiatric: positive: Oriented x3, CN's nml (2-12), Motor nml, Sensation nml. negative: Mood/affect nml - Lab Results Fish Bones: 07/12/17 05:47 07/09/17 04:30 Other Labs: Lab Results x24hrs 07/12/17 07/12/17 07/12/17 Range/Units 05:47 05:47 05:47 WBC 7.5 (4.8-10.8) x10^3/uL RBC 3.09 L (4.20-5.40) 10^6/uL Hgb 9.3 L (12.0-16.0) g/dL Hct 28.2 L (37.0-47.0) % MCV 91.5 (81.0-99.0) fL MCH 30.0 (27.0-31.0) pg MCHC 32.8 (32.0-36.0) g/dL RDW 15.8 H (12.0-15.0) % Plt Count 427 (130-450) 10^3/uL MPV 6.6 L (7.9-10.8) fL Neut # 5.1 (1.5-6.6) 10^3/uL Lymph # 1.5 (1.5-3.5) 10^3/uL [place] # 0.6 (0.0-1.0) 10^3/uL Eos # 0.2 (0.0-0.7) 10^3/uL Baso # 0.0 (0.0-0.1) 10^3/uL Absolute Nucleated RBC 0.00 x10^3/uL Nucleated RBC % 0.0 /100WBC PT 21.2 H (9.9-12.6) secs INR 1.9 H (0.8-1.2) Anti-Xa Level 0.3 ( - 0.7) U/mL Assessment/Plan - Problem List (1) Pulmonary emboli Impression: Patient presented to the emergency department with chief complaint of progressive shortness of air, cough and chest tightness. The patient recently had spinal surgery on June 27 and developed symptoms less than a week after the surgical procedure. The patient presented with sinus tachycardia and shortness of air. The patient's EKG did not show any ST elevations or ischemic changes, chest x-ray was negative, d-dimer was elevated and patient's CT angiogram showed bilateral segmental and subsegmental pulmonary emboli. Given the patient's recent spinal neurosurgery from [facility] was contacted and they recommended treating the patient with a heparin drip with no bolus of heparin and with a PTT goal of 60-80. They recommended that the patient be bridged to Coumadin with heparin drip during this hospitalization. They said there was no need to perform serial CT scans but felt patient needed hospitalization for the bridging to be monitored closely. This appears to be a provoked PE due to recent surgery and patient is also at high risk secondary to sarcoma She has plans for flight travel to [place] in the next few weeks and asks if that is safe. Plan: Started on a heparin drip with goal PTT of 60-80 and no boluses of heparin, Day # 5 We will monitor the patient's hemoglobin closely. No epistaxis or hematuria noted. Patient will be started on Coumadin and will be bridged with heparin once patient's INR is greater than 2 for 2 consecutive days the patient will be able to be discharged home on Coumadin. Today's INR 1.9. On increased coumadin of 7.5 mg since 07/10 from 5 [address] I've called Dr. Anderson and left a message and I then spoke to the Nurse Practitioner who was going to see her in followup today. She can go home tomorrow if INR >2. Will need to get INR on to get fu. We will remove sutures today. Patient will be given supplemental oxygen as needed Patient will be given incentive spirometer Patient will be given Mucinex for cough suppression I am not recommending she fly in the next few weeks and run it past neurosurgery or PCP. I sent a RX to the [facility] pharmacy for the machine for PT/INR on 07/11 Qualifiers: Pulmonary embolism type: other Chronicity: acute Acute cor pulmonale presence: without acute cor pulmonale Qualified Code(s): I26.99 - Other pulmonary embolism without acute cor pulmonale (2) Back pain from surgical site pain Conclusion/Plan: Patient continued to have pain in her cervical to thoracic spine area. This is the area of her recent surgical procedure. The patient states that the pain is much worse because of her recent coughing. The patient has been taking oxycodone at home and this is not been sufficient in alleviating her pain. Here she is on oxycodone 10 mg po and prn MS IV with adequate pain control at first. Now she feels it's not working. she was changed to dilaudid 07/10 since she felt that worked in the ER (both oral and IV) but then felt dilaudid did not help and wanted to go back on oxycodone and morphine. Then 07/10 night time , she was tearful, sobbing, and felt there was something really wrong with her spine. CT of C spine and T spine done 07/10. No changes other than soft tissue swelling from usual post op changes. Plan: Resumed oxycodone 10 mg every 4 hours as needed and morphine every 2 hours as needed for breakthrough pain Patient reassured. Continue cough suppressant Qualifiers: Back pain location: thoracic back pain Chronicity: acute Back pain laterality: midline Qualified Code(s): M54.6 - Pain in thoracic spine (3) Anemia Conclusion/Plan: On presentation the patient's hemoglobin is 10.6. and staying at 9-9.7 grams since then. The patient is not on any iron supplements. After iron studies, B12 levels and folate levels, she has iron deficiency anemia Plan: We will continue to monitor the patient's hemoglobin daily as she is being placed on a heparin drip and Coumadin. On ROS no complaints of blood loss anywhere Added iron supplement with ferrous gluconate 07/10 Continue FOBT to watch for GI bleed as well. (4) Giant cell sarcoma Conclusion/Plan: Patient has giant cell sarcoma of the bone. Patient has had multiple spinal surgeries to remove recurrence of tumor and had a VATS procedure. Patient most recently had a procedure to repair hardware from previous procedure that was causing patient increased pain and kyphosis. Plan: Patient does not appear to have active sarcoma at this time she is being monitored for her sarcoma at the [facility] by a sarcoma specialist Patient will continue to follow up as an outpatient. She is due for postop suture removal and postop visit 07/12.She is not able to make it. I will call Neurosurgery fellow to see if they want us to remove sutures. Qualifiers: Pulmonary embolism type: other Chronicity: acute Acute cor pulmonale presence: without acute cor pulmonale Qualified Code(s): I26.99 - Other pulmonary embolism without acute cor pulmonale
[2017-07-12] MEDS: WARFARIN 5 MG TABLET PO SCH (14:56)
[2017-07-12] MEDS: CALCIUM CARBONATE CHEW 500 MG TABLET PO PRN (15:45)
[2017-07-12] MEDS: HEPARIN 25,000 UNITS/500 ML NS 25,000 UNIT/500 ML BAG IV SCH (20:48)
[2017-07-13] MEDS: oxyCODONE 5 MG TABLET PO PRN ×3 (02:47→09:01)
[2017-07-13] MEDS: ACETAMINOPHEN 500 MG TABLET PO PRN ×2 (02:47→09:01)
[2017-07-13] MEDS: CALCIUM CARBONATE CHEW 500 MG TABLET PO PRN (04:09)
[2017-07-13] MEDS: SODIUM CHLORIDE FLUSH 0.9% 10 ML SYRINGE IVP SCH (05:00)
[2017-07-13 05:26] LABS: BASOPHILS % (AUTO) 0.7 %; EOSINOPHILS # (AUTO) 0.2 10^3/uL (0.0-0.7); EOSINOPHILS % (AUTO) 3.6 %; HCT - HEMATOCRIT 28.4 % (37.0-47.0); HGB - HEMOGLOBIN 9.4 g/dL (12.0-16.0); LYMPHOCYTES # (AUTO) 1.5 10^3/uL (1.5-3.5); LYMPHOCYTES % (AUTO) 21.5 %; MEAN CORPUSCULAR HGB CONC 32.9 g/dL (32.0-36.0); MEAN PLATELET VOLUME 6.5 fL (7.9-10.8); MONOCYTES # (AUTO) 0.5 10^3/uL (0.0-1.0); MONOCYTES % (AUTO) 7.9 %; NEUTROPHILS # (AUTO) 4.5 10^3/uL (1.5-6.6); NEUTROPHILS % (AUTO) 66.3 %; NUCLEATED RED BLOOD CELLS AUTO 0.1 /100WBC; RED BLOOD COUNT 3.12 10^6/uL (4.20-5.40); RED CELL DISTRIBUTION WIDTH 15.6 % (12.0-15.0); UNCORRECTED WHITE BLOOD COUNT 6.8 x10^3/uL; WHITE BLOOD COUNT 6.8 x10^3/uL (4.8-10.8)
[2017-07-13 05:32] LABS: INR 2.9 (0.8-1.2)
[2017-07-13] MEDS: PANTOPRAZOLE 40 MG TABLET PO SCH (05:40)
[2017-07-13 07:38] VITALS: BP 94/60
--- NOTE | 2017-07-13 07:39 | Discharge Plan ---
Discharge Plan Disposition: Home, Self Care Condition: Stable Prescriptions: Miscellaneous Medical Supply [Tablet Cutter] 1 each MC DAILY #1 each Warfarin [Coumadin] 1 mg PO 1400 PRN #30 tablet PRN Reason: Per Physician Order Warfarin [Coumadin] 5 mg PO 1400 #30 tablet Zolpidem [Ambien] 5 mg PO QPM PRN #30 tablet PRN Reason: Insomnia Diet: Regular Activity Restrictions: Activity as Tolerated Shower Restrictions: No Driving Restrictions: Yes (Per Dr. Anderson's instructions) Additional Instructions or Follow Up instructions: You werer placed in the hospital because of pulmonary emboli. We suspect that while you are on the operating room table for 9 hours, and then in the postoperative setting where you were not moving very much, you developed blood clots or deep venous thrombosis in your legs or lower extremities that then traveled to your lungs. You will need to be on blood thinners for minimum of 3 months. Please discuss the duration of therapy with your primary care provider. Sometimes you need to be treated for 4 months. 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 And as such you understand what an INR is. You need to be greater than 2 at all times. I have given you a prescription for Coumadin 5 mg tablets as well as 1 mg tablets. Your Coumadin may need to be adjusted according to what your INR is and I want to give you some leeway on pill size. You will need to get your INR done tomorrow morning 07/14/17. Please make sure the lab calls me with that result. If you would like, call me directly at [phone] and I can review those results with you. You have also asked for a prescription for a pro time monitor. I will send one to [facility] since the [facility] pharmacy did not receive it. Please see your primary care provider Kal Perez in the next week. And keep your appointment with the nurse practitioner for Dr. Anderson at [facility]. No Smoking: If you smoke, Please STOP! Call for help. Follow-up with: Kal Perez ARNP [Primary Care Provider] -
[2017-07-13] MEDS: FERROUS GLUCONATE 324 MG TABLET PO SCH (08:24)
[2017-07-13] MEDS: POLYETHYLENE GLYCOL 3350 17 GM PACKET PO SCH (08:24)
[2017-07-13] MEDS: PRENATAL VITAMIN TABLET PO SCH (08:24)
[2017-07-13] MEDS: guaiFENesin 600 MG TABLET PO SCH (08:24)
[2017-07-13] MEDS: LEVALBUTEROL 1.25 MG/0.5 ML NEB INH PRN (08:47)
[2017-07-13] MEDS: SODIUM CHLORIDE INHALATION 3 ML NEB INH PRN (08:47)
--- NOTE | 2017-07-24 20:40 | DISCHARGE SUMMARY ---
DATE OF ADMISSION: 07/08/2017 DATE OF DISCHARGE: 07/13/2017 PRIMARY CARE PROVIDER: Kal Perez. DIAGNOSES 1. Pulmonary embolus. 2. Postoperative back pain. 3. Anemia. 4. Giant cell sarcoma. DISCHARGE MEDICATIONS 1. Roxicodone 10 mg tablets every 3-4 hours as needed for pain. 2. Flexeril 10 mg every 6 hours as needed for muscle spasm. 3. Reglan 10 mg every 8 hours as needed for nausea and vomiting. 4. Zofran 4 mg every 6 hours as needed for nausea and vomiting. 5. Coumadin 5 mg tablet to be taken daily. 6. Coumadin 1 mg tablet to be taken depending on the INR that she obtains from her primary care provi harpal. 7. Ambien 5 mg p.o. q.p.m. p.r.n. insomnia. 8. Pro time machine with strips with pro time to be checked daily. PRINCIPAL PROCEDURES 1. Chest x-ray with normal heart size and clear lungs. 2. Chest and thorax CT angiogram with pulmonary embolism with small to moderate amount of clot. She h as multiple pulmonary emboli at the segmental and subsegmental level, right more than left, with a sm all amount of thrombus visible in the left pulmonary artery bifurcation. 3. Cervical spine CT with extensive postoperative changes noted in the cervical spine with posterior fusion extending from C2-T9. She has gone anterior fusion of C7-T2 with previous 05/22 corpectomy. No hardware complications. Possible mild displaced medial left T1 rib fracture. Probable postoperative seroma in the midline of the posterior neck extending from the upper thoracic level to C3-T4. No post operative hematoma. 4. CT of thoracic spine with same reading as above. HOSPITAL COURSE: She is a 26-year-old white female who presented to the emergency room department wit h a chief complaint of progressive shortness of breath, cough, and chest tightness. She recently had spinal surgery that was very extensive on 06/27/2017. She describes being on the operating room table for 9 hours. She developed these symptoms less than a week after the surgical procedure. In the [facility] room, she had sinus tachycardia, shortness of breath. EKG was without acute changes. Chest x-ra y was negative. D-dimer was elevated and the patient's CT angiogram showed bilateral segmental and louie bsegmental pulmonary emboli. Given the patient's recent spinal neurosurgery from the [facility], we contacted the neurosurgeon on-call. They recommended treating the patient with a heparin drip with no bolus of heparin and a PTT goal of 60-80. They recommended she be bridged to Coumadin w ith heparin drip during this hospitalization. There was no need to performed serial CT scans, but did recommend the patient be hospitalized with a bridging to be monitored closely. They wanted close mon itoring because of her recent surgery, risk of bleeding. That was why heparin was chosen so that it c ould be discontinued quickly and Coumadin reversed quickly. The patient was admitted with this diagnosis and was started on heparin. On day 5 INR was finally at 2.9. The [facility] had initially requested that we have her greater than INR of 2 for 2 consecutive days. However, the patient was tearful, had called the clinic herself and the nurse pra ctitioner on-call so that it was okay for her to go home today after only 1 day. The patient is a med ical contract administrative assistant. She says that she knows how to monitor INR through testing and strips and would like a prescription for her own machine. As such, that was called to the [employer] [facility] as well as to a local [facility]. During her stay, she was intermittently tearful, and frightened. She felt like the swelling along her scar was worse than any of the swelling she had before with previous surgeries. As such, a CT of the T-spine and C-spine were done. Other than a seroma no other problems were found. The patient was ter rified that she was having a new infection. During her stay, she was constantly tachycardic in the lo w 100s. O2 saturations were maintained at 98% to 100% on room air. She never spiked a temperature. Kiana cohen was able to ambulate in the room slowly to the bathroom and to take a shower. During her stay, hemo globin is 10.6 was noted on admission. It did not require transfusion. We attributed this anemia to a cute blood loss anemia from her surgery. We did not feel she was actively bleeding from any source. O n the day of discharge, hemoglobin was 9.4. The patient does have a history of giant cell sarcoma with previous history of extensive tumor resect ion. With her history of carcinoma, it may be prudent to change her to Lovenox down the road. It is u nclear if this PE is linked to malignancy or not. She will need close followup in the outpatient sett ing with Oncology, and her neurosurgeon. Unfortunately, this patient is moving to [place] in the next 5 days. She is insistent that she will be flying on a plane to [place]. I told her that considering she just had a PE, most likely due to immobility on a table, flying across the country for 5-6 hours was probably not recommended, that she might be too much risk. She was asked to follow up with an INR and PT tomorrow in our lab. I will call her with those results and adjust her Coumadin as needed. To please try and follow up with her primary care provider in the next few days. She is discharged in stable condition with a temperature of 37.1, pulse 105, blood pressure 94/60, re spirations 18, 100% on room air. She is a 5 foot tall, 62 kilogram white female in no acute distress. She is moving very slowly because of pain and stiffness in her spine. However, she is able to sit fr om a lying position, stand with standby assist. She can walk slowly. She just does not move quickly. Neck is slightly stiff was still can turn her head slowly to the right or left. Lungs are clear to au scultation and percussion. PMI is normally placed with occasional tachycardic rate. No murmurs, rubs, or gallops. The abdomen is soft, normal bowel sounds. Nontender. Mild trace edema around the malleol i and feet. Greater than 30 minutes was spent in coordinating discharge, instructions for the patient, and instru ctions for her family. JOB #: [id number] EXT JOB #:[id number]
== END 2017-07-13 09:40 | disposition home or self-care (01) | DRG 176 ==
LOC: ED 18:38 → MS2 07-08 00:28
PROVIDERS: ADMIT Internal Medicine; ATTEND Specialist
DX: I26.99 Other pulmonary embolism without acute cor pulmonale (principal); C41.2 Malignant neoplasm of vertebral column; M96.842 Postprocedural seroma of a musculoskeletal structure following a musculoskeletal system procedure; D62 Acute posthemorrhagic anemia; R00.0 Tachycardia, unspecified; R33.9 Retention of urine, unspecified; G89.18 Other acute postprocedural pain; Y92.234 Operating room of hospital as the place of occurrence of the external cause; Y83.8 Other surgical procedures as the cause of abnormal reaction of the patient, or of later complication, without mention of misadventure at the time of the procedure; Z98.1 Arthrodesis status; Z79.891 Long term (current) use of opiate analgesic; Z79.899 Other long term (current) drug therapy
CPT/HCPCS: 36415; 51798; 71020; 71275; 72125; 72128; 80053; 81001; 81003; 82270; 82607; 82728; 82746; 83540; 83690; 84466; 85025; 85379; 85520; 85610; 87086; 93005; 93306; 94640; 96374; 96375; 96376; 99284; 99285

== ENCOUNTER 2017-07-14 10:34 | Outpatient (CLI) | payer OTHER ==
[2017-07-14 10:56] LABS: INR 2.3 (0.8-1.2); PT - PROTHROMBIN TIME 25.3 secs (9.9-12.6)
== END 2017-07-14 10:35 | disposition home or self-care (01) ==
LOC: LAB 10:34
PROVIDERS: ATTEND Specialist
DX: I26.99 Other pulmonary embolism without acute cor pulmonale (principal)
CPT/HCPCS: 36415; 85610